=== PATIENT | male | born 1945 | race Caucasian/White ===

== ENCOUNTER → 2018-05-23 | Outpatient (CLI) | payer MEDICARE ==
[2018-05-23 14:40] LABS: HCT 43.9 % (39.0-53.0); HGB 14.8 gm/dL (13.0-17.5); MCH 32.5 pg (25.0-35.0); MCHC 33.6 g/dL (31.0-37.0); MCV 96.8 fL (80.0-100.0); Mean Platelet Volume 7.6; Platelet Count 137 k/uL (150-450); RBC 4.54 m/uL (4.30-5.90); RDW 14.4 % (11.5-15.5); WBC 3.4 k/uL (3.8-10.6)
[2018-05-23 14:52] LABS: INR 0.9 (<1.2); Partial Thromboplastin Time 23.3 sec (22.0-30.0); Potassium 3.7 mmol/L (3.5-5.1); Prothrombin Time 10.1 sec (9.0-12.0)
[2018-05-23 15:15] LABS: Appearance,Urine Clear (Clear); Bilirubin,Urine Negative (Negative); Blood,Urine Negative (Negative); Color,Urine Yellow; Glucose,Urine (UA) Negative (Negative); Ketones,Urine Negative (Negative); Leukocyte Esterase,Urine Negative (Negative); Nitrite,Urine Negative (Negative); PH, Urine 7.5 (5.0-8.0); Protein,Urine Negative (Negative); Specific Gravity,Urine 1.013 (1.001-1.035); Urobilinogen,Urine <2.0 mg/dL (<2.0)
== END | disposition home or self-care (01) ==
LOC: LABPAT 13:57
PROVIDERS: ATTEND Orthopaedic Surgery
DX: Z01.812 Encounter for preprocedural laboratory examination (principal); M16.11 Unilateral primary osteoarthritis, right hip
CPT/HCPCS: 80051; 81003; 82565; 84520; 85027; 85610; 85730; 87070

== ENCOUNTER 2018-05-29 11:24 | Inpatient (IN) | payer MEDICARE ==
[~2018-05-29 11:24] MED LIST: ACETAMINOPHEN TAB 500 MG TAB PO ONE; HYDROmorphone 0.5 MG/0.5 ML SYRINGE IVP PRN; LIDOCAINE 1% 20 ML VIAL (10MG/ML) FOR IV START INTRADERMA PRN; MELOXICAM 7.5 MG TAB PO ONE; ONDANSETRON 4 MG/2 ML VIAL IVP ONE; TRANEXAMIC ACID 1,000 MG in SODIUM CHLORIDE 0.9% 100 ML IVPB ONE; ceFAZolin IN SWFI 2 GM/20 ML SYRINGE IVP ONE
[2018-05-29] MEDS: LACTATED RINGERS 1,000 ML IV SCH (12:18)
[2018-05-29] MEDS ORDERED: DEXAMETHASONE SOD PHOS (MDV) 100 MG/10 ML VIAL IV ONE (12:19)
[2018-05-29] MEDS ORDERED: MIDAZOLAM 2 MG/2 ML VIAL IV ONE (13:01)
[2018-05-29] MEDS ORDERED: NALOXONE 0.4 MG/ML 1 ML VIAL IV PRN (13:12)
[2018-05-29] MEDS ORDERED: MAGNESIUM HYDROXIDE 2,400 MG/10 ML CUP PO PRN (13:12)
[2018-05-29] MEDS ORDERED: HYDROmorphone 0.5 MG/0.5 ML SYRINGE IVP PRN ×2 (13:12)
[2018-05-29] MEDS ORDERED: HYDROcodone/APAP 7.5-325MG 1 EACH TAB PO PRN (13:12)
[2018-05-29] MEDS ORDERED: hydrOXYzine PAMOATE 25 MG CAP PO PRN (13:12)
[2018-05-29] MEDS ORDERED: ONDANSETRON 4 MG/2 ML VIAL IVP PRN (13:12)
[2018-05-29] MEDS ORDERED: MIDAZOLAM 2 MG/2 ML VIAL ONE (13:14)
[2018-05-29] MEDS ORDERED: fentaNYL (PF) 50 MCG/ML 2 ML AMP ONE (13:14)
[2018-05-29] MEDS ORDERED: ePHEDrine SULFATE/0.9% NACL/PF 50 MG/5 ML SYRINGE IV ONE (13:14)
[2018-05-29] MEDS: ROPIVACAINE 246.25 MG, EPINEPHrine 0.5 MG, KETOROLAC 30 MG, cloNIDine HCL/PF 80 MCG, WA... MISCELLANE ONE ×10 (13:48→13:58)
[2018-05-29] MEDS ORDERED: ceFAZolin 3,000 MG in SODIUM CHLORIDE 0.9% IRRIGATIO 3,000 ML IRRIGATION ONE (13:49)
--- NOTE | 2018-05-29 14:58 | P.OP ---
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 Procedure(s) Performed: Conversion of a right hip hemiarthroplasty to total hip arthroplasty Implants: [employer] R3 3 hole hemispherical coated shell, 52 mm [employer] reflection 6.5 mm cancellus screw 20 mm 2 [employer] R3 XLPE 20 acetabular liner, 36 mm Maurice Biolox delta ceramic femoral head 36 mm, 12 x 14 taper The articulation is ceramic on polyethylene All components were press-fit Anesthesia: spinal Surgeon: Romeo Briscoe Country Director #1: Winnie Washington Estimated Blood Loss (ml): 100 Pathology: none sent Condition: stable Disposition: PACU Indications for Procedure: This is a 73-year-old gentleman that had a right hip hemiarthroplasty performed on July [id number] for subcapital hip fracture. Patient initially had son well, but is beginning to have more pain in the right hip with activity. X- rays demonstrate arthrosis of the acetabulum consistent with cartilage wear causing the pain. After discussing the surgical and nonsurgical treatment options with her at length, he wishes to proceed with a conversion hemiarthroplasty to a total hip arthroplasty. Informed consent was obtained. Operative Findings: The operative findings are consistent with significant arthrosis of the acetabulum. The femoral component was found to be well seated. Description of Procedure: Patient was seen and evaluated in the preoperative area, consent was reviewed, and the surgical site was marked with a skin marker. Patient was then brought to the operating room and given prophylactic antibiotics intravenously. 1 g of Tranexamic acid was also given. A spinal anesthetic was administered by the anesthesia department. The patient was then placed on the operative table and placed in the lateral decubitus position with the bony prominences well-padded. The hip area was then prepped and draped in usual sterile fashion. A universal timeout was then performed, which confirmed the patient's name, surgical site, ALLERGIES, and procedure being performed. Next the incision site was located in the lateral aspect of the hip, centered at the tip of the greater trochanter.. The skin and subcutaneous tissues were sharply incised, with the scar being excised.. Incision was carefully dissected down to the fascia. This fascia was then incised in line with the incision. The prior Ethibond sutures were then removed. Next, a Charnley retractor was then placed in the abductors were identified. The anterior one third of the abductors was released off the trochanter and one large sleeve. The anterior hip capsule was then exposed. The capsule was then opened. The proximal femur was then visualized. The hip was then gently dislocated. The unipolar head was then removed with an osteotome and a mallet. The femoral component was inspected and found to be stable. Attention was then directed to the acetabulum. The acetabulum was exposed and any remaining labrum was excised. The acetabulum was found have significant arthrosis and complete loss of articular cartilage. Sequential reaming of the acetabulum was performed to a bed of bleeding cancellus bone. When the appropriate size was reached, a trial was then placed. The trial was then removed. Then the final implant was impacted at 20 of anteversion and 40 of abduction, and fully seated in the acetabulum. 2 screws were then placed in the acetabulum. Next, the liner was then impacted, with a 20 elevated liner located in the anterior superior quadrant. Component locking was confirmed. Attention was then directed to the femur. A trial was then placed with appropriate head and neck, and the hip was gently reduced. The leg lengths were checked and found to be equal. Hip was then taken through full range of motion, was stable throughout. Next, the hip was gently dislocated, and the trials were removed. Final implants were then impacted and the hip was again reduced. The leg lengths were again examined and found to be equal. The hip was also taken through range of motion, and found to be stable. The hip was then copiously irrigated with antibiotic solution with pulsatile lavage. The hip was then irrigated with Irrisept solution. The soft tissues were then injected with a ropivacaine solution, which consisted of 246.25 mg of ropivacaine, 0.5 mg of epinephrine, 30 mg of Toradol, 80 g of clonidine, and 48.45 mL of sterile water, for a total of 100 mL of fluid injected. A second dose of 1 g of Tranexamic acid was given. The abductors were then repaired with #5 Ethibond suture with drill holes to the bone. The fascia was closed with #2 strata fix suture. The subcutaneous tissue was closed with 3-0 Vicryl. The subcuticular tissue was closed with 30 strata fix suture. The skin was then closed with Dermabond tape. A silver dressing was also applied. The patient was then transferred to the recovery room in stable condition. The Asst. FABY Mantilla was required due to the complexity of surgery, and the need for skilled surgical services asst for positioning, draping, exposure, retraction, and closure of the wound.and closure of the wound.
[2018-05-29] MEDS ORDERED: LACTATED RINGERS 1,000 ML IV ONE (15:12)
--- NOTE | 2018-05-29 15:43 | XR ---
EXAMINATION TYPE: XR Hip Limited RT DATE OF EXAM: 05/29/2018 COMPARISON: NONE HISTORY: Postop TECHNIQUE: One view submitted. FINDINGS: There is postsurgical change in near anatomic alignment. There is soft tissue edema and emphysema. V ascular calcifications are noted. Previous trauma to the pubic rami seen. Soft tissue ossifications n oted. Diffuse osteopenia. IMPRESSION: 1. Postoperative change. Appears in near-anatomic alignment.
[2018-05-29 16:33] VITALS: BMI 20.4
[2018-05-29] MEDS: SODIUM CHLORIDE 0.9% 1,000 ML IV SCH (17:09)
[2018-05-29] MEDS: HYDROcodone/APAP 7.5-325MG 1 EACH TAB PO PRN (18:02)
[2018-05-29] MEDS: NICOTINE 14MG/24HR PATCH TRANSDERM SCH (18:02)
[2018-05-29] MEDS: HYDROmorphone 0.5 MG/0.5 ML SYRINGE IVP PRN (21:14)
[2018-05-29] MEDS: SENNOSIDES-DOCUSATE SODIUM 1 EACH TAB PO SCH (21:53)
[2018-05-29] MEDS: ATORVASTATIN 80 MG TAB PO SCH (21:53)
[2018-05-29] MEDS: amLODIPine 10 MG TAB PO SCH (21:53)
[2018-05-29] MEDS: ASPIRIN 325 MG TAB PO SCH (21:53)
[2018-05-29] MEDS: SERTRALINE 100 MG TAB PO SCH (21:53)
[2018-05-29] MEDS: ZOLPIDEM 10 MG TAB PO SCH (21:53)
[2018-05-29] MEDS: ceFAZolin IN SWFI 2 GM/20 ML SYRINGE IVP SCH (21:53)
[2018-05-29] MEDS: MELATONIN 5 MG TABLET PO PRN (21:57)
[2018-05-30] MEDS: HYDROmorphone 0.5 MG/0.5 ML SYRINGE IVP PRN ×3 (00:41→13:48)
[2018-05-30] MEDS: SODIUM CHLORIDE 0.9% 1,000 ML IV SCH ×2 (04:24→20:39)
[2018-05-30] MEDS: ceFAZolin IN SWFI 2 GM/20 ML SYRINGE IVP SCH (04:38)
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
[2018-05-30] MEDS: LACTATED RINGERS 1,000 ML IV SCH (05:17)
[2018-05-30 06:31] LABS: Basophils % (A) 0 %; Eosinophils % (A) 1 %; HCT 29.8 % (39.0-53.0); Lymphocytes # (A) 0.7 k/uL (1.0-4.8); Lymphocytes % (A) 17 %; MCH 32.7 pg (25.0-35.0); MCHC 33.1 g/dL (31.0-37.0); MCV 98.8 fL (80.0-100.0); Mean Platelet Volume 8.2; Monocytes # (A) 0.4 k/uL (0-1.0); Monocytes % (A) 10 %; Neutrophils % (A) 71 %; Platelet Count 93 k/uL (150-450); RBC 3.02 m/uL (4.30-5.90); RDW 14.9 % (11.5-15.5); WBC 4.3 k/uL (3.8-10.6)
[2018-05-30 06:51] LABS: HGB 9.9 gm/dL (13.0-17.5)
[2018-05-30 07:08] LABS: Calcium 7.8 mg/dL (8.4-10.2); Potassium 3.7 mmol/L (3.5-5.1)
[2018-05-30 08:18] LABS: Poikilocytosis (M) Present
--- NOTE | 2018-05-30 08:44 | P.PN ---
Subjective Progress Note Date: 05/30/18 This is a 73-year-old male who is status post conversion of a right hip hemiarthroplasty to total hip arthroplasty. This is postoperative day #1 and patient is seen and evaluated at bedside with Dr. Romeo Briscoe. Patient states that his pain is well controlled. Patient denies any new complaints. Patient denies any fever/chills, numbness, weakness, tingling, abdominal pain, shortness of breath or chest pain. Objective - Vital Signs Vital signs: Vital Signs Temp 98.2 F 05/29/18 23:53 Pulse 56 L 05/29/18 23:53 Resp 16 05/29/18 23:53 BP 108/70 05/29/18 23:53 Pulse Ox 98 05/29/18 23:53 Intake & Output 05/29/18 05/30/18 05/30/18 18:59 06:59 18:59 Intake Total 1401 Output Total 100 750 Balance 1301 -750 Intake: IV 1401 Output: Urine 750 Estimated Blood Loss 100 Other: Voiding Method Urinal - Exam Vital signs are stable. Patient is in no acute distress and is alert and oriented 3. Abductor pillow is in place. Calf is soft and nontender to palpation. Dressing is clean, dry, and intact. Patient has full foot and ankle motion without pain or difficulty. Neurovascular status and circulatory status are intact. 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 COPD Hyperlipidemia Hypertension Osteoarthritis Eye disorder Chronic back pain (1) Pain with hip hemiarthroplasty Current Visit: Yes Status: Acute Code(s): T84.84XA - PAIN DUE TO INTERNAL ORTHOPEDIC PROSTH DEV/GRFT, INIT; Z96.649 - PRESENCE OF UNSPECIFIED ARTIFICIAL HIP JOINT SNOMED Code(s): 746208251 Plan: Continue routine postop care and pain control. Continue hip precautions with abductor pillow. Continue anticoagulation with aspirin. Weightbearing as tolerated with a walker. Leave dressing in place for 10 days. Appreciate input from medicine. Possible discharge home tomorrow.
[2018-05-30] MEDS: HYDROcodone/APAP 7.5-325MG 1 EACH TAB PO PRN (10:15)
[2018-05-30] MEDS: MELOXICAM 7.5 MG TAB PO SCH (10:16)
[2018-05-30] MEDS: ASPIRIN 325 MG TAB PO SCH ×2 (10:16→21:39)
[2018-05-30] MEDS: TRIAMTERENE-HCTZ 37.5-25MG 1 EACH TAB PO SCH (10:17)
[2018-05-30] MEDS: TAMSULOSIN 0.4 MG CAP.ER.24H PO SCH (10:17)
[2018-05-30] MEDS ORDERED: HYDROcodone/APAP 10-325MG 1 EACH TAB PO PRN (14:50)
[2018-05-30] MEDS: HYDROcodone/APAP 10-325MG 1 EACH TAB PO PRN ×2 (16:23→22:50)
[2018-05-30] MEDS: DIAZEPAM 5 MG TAB PO PRN ×2 (16:24→23:26)
[2018-05-30] MEDS: NICOTINE 14MG/24HR PATCH TRANSDERM SCH (18:02)
--- NOTE | 2018-05-30 18:22 | PN ---
PROGRESS NOTE DATE OF SERVICE: 05/30/2018 This 73-year-old gentleman underwent right total knee arthroplasty today. The patient underwent possibly conversion for right total arthroplasty. No chest pain. No palpitations. On exam, alert and oriented x3. Pulse is 57, blood pressure 101/69, respiration 18, temperature 97.9, pulse ox 96% on room air. HEENT: Conjunctivae normal. NECK: No jugular venous distention. CARDIOVASCULAR SYSTEM: S1, S2 muffled. RESPIRATORY SYSTEM: Breath sounds diminished at the bases. No rhonchi. No crackles. ABDOMEN: Soft. LEGS: Status post surgery. NERVOUS SYSTEM: No focal deficit. LABS: WBC 4.3, hemoglobin 9.9, platelets 93 and sodium is 134, creatinine 1.31. ASSESSMENT: 1. Status post right total hip joint arthroplasty for right hip fracture. 2. History of hypertension. 3. Hyperlipidemia. 4. History of nicotine dependence. 5. Anemia, as expected. 6. Thrombocytopenia. 7. Hyponatremia. 8. Increased creatinine with chronic kidney disease, stage III, baseline. 9. History of nicotine dependence. 10.History of degenerative joint disease. 11.History of back pain. 12.Depression. 13.Post-traumatic stress disorder. 14.History of recent labs showing increased creatinine, mild thrombocytopenia, which is stable. RECOMMENDATIONS AND DISCUSSION: I recommend to continue current medications, continue with the monitoring, symptomatic treatment. Otherwise, continue with DVT prophylaxis. Closely follow with Orthopedic Surgery. I recommend close followup in the outpatient setting. Further recommendations to follow. MMODL / RENATON: [id number] /
[2018-05-30] MEDS: SENNOSIDES-DOCUSATE SODIUM 1 EACH TAB PO SCH (21:39)
[2018-05-30] MEDS: amLODIPine 10 MG TAB PO SCH (21:39)
[2018-05-30] MEDS: ZOLPIDEM 10 MG TAB PO SCH (21:39)
[2018-05-30] MEDS: MELATONIN 5 MG TABLET PO PRN (21:39)
[2018-05-30] MEDS: SERTRALINE 100 MG TAB PO SCH (21:39)
[2018-05-30] MEDS: ATORVASTATIN 80 MG TAB PO SCH (21:39)
[2018-05-31] MEDS: HYDROcodone/APAP 10-325MG 1 EACH TAB PO PRN ×2 (05:07→11:40)
[2018-05-31] MEDS: LACTATED RINGERS 1,000 ML IV SCH (05:39)
[2018-05-31 07:30] VITALS: BP 120/73; PULSE 90; RESP 14; TEMP 98.8
[2018-05-31] MEDS: TRIAMTERENE-HCTZ 37.5-25MG 1 EACH TAB PO SCH (07:35)
[2018-05-31] MEDS: DIAZEPAM 5 MG TAB PO PRN (07:35)
[2018-05-31] MEDS: TAMSULOSIN 0.4 MG CAP.ER.24H PO SCH (07:35)
[2018-05-31] MEDS: ASPIRIN 325 MG TAB PO SCH (07:35)
[2018-05-31] MEDS: MELOXICAM 7.5 MG TAB PO SCH (07:35)
--- NOTE | 2018-05-31 08:43 | P.DS ---
Providers Date of admission: 05/29/18 11:24 Expected date of discharge: 05/31/18 Attending physician: Romeo Briscoe Consults: 05/29/18 13:12 Consult Physician Routine Consulting Provider: Jay Jay Hagan Consult Reason/Comments: medical management Do you want consulting provider notified?: Yes 05/29/18 16:15 Consult Physician Routine Consulting Provider: Amee Cordero Consult Reason/Comments: medical management Do you want consulting provider notified?: Already Contacted Primary care physician: Jay Jay Hagan - Discharge Diagnosis(es) (1) Pain with hip hemiarthroplasty Current Visit: Yes Status: Acute Hospital Course: This is a 73-year-old male who had a right hip hemiarthroplasty done on 2015 for a subcapital hip fracture. The patient presents for evaluation after the right hip started to become more painful. X-ray showed arthrosis of the acetabulum. After discussion and consideration patient elects to proceed with conversion of right hip hemiarthroplasty to right total hip arthroplasty. The patient is seen preoperatively by Dr. Briscoe and medically cleared for surgery by their primary care physician. Patient is [facility] on 05/29/2018 for conversion of right hip hemiarthroplasty to right total hip arthroplasty. The procedures performed without complication or sequelae. The patient is doing well postoperatively. Labs and vital signs are stable on day of discharge. On day of discharge patient's hip incision is healing well. There is minimal erythema. There is no drainage noted at this time. There is minimal soft tissue swelling to the hip and thigh. Patient has full foot and ankle motion without difficulty or pain. Calf is soft and nontender to palpation. Neurovascular status to the right lower extremity is intact. Patient is discharged home in good condition. Please see med rec for accurate list of home medications. Plan - Discharge Summary Discharge Rx Participant: No New Discharge Prescriptions: New Aspirin 325 mg PO BID #60 tab No Action Sertraline HCl [Zoloft] 100 mg PO HS Atorvastatin [Lipitor] 80 mg PO HS Tamsulosin [Flomax] 0.4 mg PO DAILY cap.er.24h Zolpidem Tartrate 10 mg PO HS Naproxen Sod/Diphenhydramine [Aleve Pm Caplet] 1 tab PO HS Triamterene/Hydrochlorothiazid [Triamterene-Hctz 37.5-25 mg Tb] 1 tab PO DAILY Aspirin 81 mg PO DAILY amLODIPine [Norvasc] 10 mg PO HS Melatonin 20 mg PO HS PRN PRN Reason: Insomnia HYDROcodone/APAP 10-325MG [Hastings 10-325] 1 tab PO Q4H PRN PRN Reason: Pain Discharge Medication List Sertraline HCl [Zoloft] 100 mg PO HS 12/27/13 [History] Atorvastatin [Lipitor] 80 mg PO HS 08/07/15 [History] Tamsulosin [Flomax] 0.4 mg PO DAILY cap.er.24h 09/11/15 [Rx] Zolpidem Tartrate 10 mg PO HS 09/25/15 [History] Aspirin 81 mg PO DAILY 05/22/18 [History] Naproxen Sod/Diphenhydramine [Aleve Pm Caplet] 1 tab PO HS 05/22/18 [History] Triamterene/Hydrochlorothiazid [Triamterene-Hctz 37.5-25 mg Tb] 1 tab PO DAILY 05/22/18 [History] HYDROcodone/APAP 10-325MG [Hastings 10-325] 1 tab PO Q4H PRN 05/29/18 [History] Melatonin 20 mg PO HS PRN 05/29/18 [History] amLODIPine [Norvasc] 10 mg PO HS 05/29/18 [History] Aspirin 325 mg PO BID #60 tab 05/31/18 [Rx] Follow up Appointment(s)/Referral(s): [facility], [NON-STAFF] - As Needed Romeo Briscoe DO [Doctor of Osteopathic Medicine] - 2 Weeks Activity/Diet/Wound Care/Special Instructions: Weightbearing as tolerated with walker. Leave dressing intact. Dressing may be removed by home care nurse or by patient in 10 days. May shower with dressing on. Continue use if abductor pillow for 6 weeks. Pain management per Dr. Hagan. Please follow-up with [facility] in 2 weeks and call with any questions or concerns, . Discharge Disposition: HOME WITH HOME HEALTH SERVICES
--- NOTE | 2018-05-31 21:03 | PN ---
PROGRESS NOTE DATE OF SERVICE: 05/31/2018 This 73-year-old gentleman who was admitted after right total knee arthroplasty is improving significantly. No chest pain. No palpitations. No fever. EXAM: Alert and oriented x3. Pulse is 90, blood pressure 120/73, respiration 14, temperature 98.8, pulse ox 97% on room air. HEENT: Conjunctivae normal. NECK: No jugular venous distention. CARDIOVASCULAR: S1, S2. RESPIRATORY: Breath sounds diminished in the bases. No rhonchi, no crackles. ABDOMEN: Soft. LEGS: No edema. NERVOUS SYSTEM: No focal deficits. LABS: WBC 4.2, hemoglobin 9.9, platelets 93. Sodium 134, creatinine 1.131. ASSESSMENT: 1. Status post right total hip joint arthroplasty for right hip fracture. 2. History of hypertension. 3. History of hyperlipidemia. 4. History of nicotine dependence. 5. History of anemia as expected. 6. Thrombocytopenia. 7. Hyponatremia. 8. Increased creatinine with possibly chronic kidney disease stage III baseline. 9. History of nicotine dependence. 10.History of degenerative joint disease. 11.History of back pain. 12.Depression. 13.Posttraumatic stress disorder. 14.History of recent labs showing increased creatinine, mild thrombocytopenia, which is stable. RECOMMENDATIONS AND DISCUSSION: I recommend to continue current management, monitoring and symptomatic treatment. Resume the home medications. Closely follow with primary physician with repeat labs. Otherwise, the rest of the recommendations per Orthopedic Surgery. MMODL / IJN: [id number] /
== END 2018-05-31 13:10 | disposition home health service (06) | DRG 467 ==
LOC: 2ORMAIN 11:24 → 4SSUR 16:05
PROVIDERS: ADMIT Orthopaedic Surgery; ATTEND Orthopaedic Surgery
PROC: 0SP90JZ Removal of Synthetic Substitute from Right Hip Joint, Open Approach (ICD-10-PCS; 2018-05-29)
PROC: 0SR904A Replacement of Right Hip Joint with Ceramic on Polyethylene Synthetic Substitute, Uncemented, Open Approach (ICD-10-PCS; principal; 2018-05-29 14:00)
DX: T84.090A Other mechanical complication of internal right hip prosthesis, initial encounter (principal); E87.1 Hypo-osmolality and hyponatremia; D69.6 Thrombocytopenia, unspecified; J44.9 Chronic obstructive pulmonary disease, unspecified; N18.3 Chronic kidney disease, stage 3 (moderate); D64.9 Anemia, unspecified; M16.11 Unilateral primary osteoarthritis, right hip; E78.5 Hyperlipidemia, unspecified; F32.9 Major depressive disorder, single episode, unspecified; F43.10 Post-traumatic stress disorder, unspecified; G89.29 Other chronic pain; H57.9 Unspecified disorder of eye and adnexa; I12.9 Hypertensive chronic kidney disease with stage 1 through stage 4 chronic kidney disease, or unspecified chronic kidney disease; M54.9 Dorsalgia, unspecified; F17.210 Nicotine dependence, cigarettes, uncomplicated; N40.0 Benign prostatic hyperplasia without lower urinary tract symptoms; H91.90 Unspecified hearing loss, unspecified ear; R26.81 Unsteadiness on feet; Z88.0 Allergy status to penicillin; Z79.82 Long term (current) use of aspirin; Z79.899 Other long term (current) drug therapy; Y79.2 Prosthetic and other implants, materials and accessory orthopedic devices associated with adverse incidents
CPT/HCPCS: 73501; 80048; 85025; 86850; 86900; 86901

== ENCOUNTER → 2019-02-18 | Outpatient (CLI) | payer MEDICARE ==
--- NOTE | 2019-02-18 19:37 | MR ---
EXAMINATION TYPE: MR cervical spine wo con DATE OF EXAM: 02/18/2019 COMPARISON: Prior cervical MRI 02/28/2014 HISTORY: Neck pain, left arm pain/weakness TECHNIQUE: Multiplanar, multisequence images of the cervical spine were acquired. C2-C3: There is some foraminal encroachment due to uncovertebral joint hypertrophy greater on the lef t than on the right, no significant spinal stenosis or evident disc herniation C3-C4: Retrolisthesis associated with posterior broad-based disc bulge is noted results in severe spi nal stenosis, there is bilateral foraminal encroachment due to uncovertebral joint hypertrophy, facet arthropathy. C4-C5: There is some motion present, suspect there may be some mild central stenosis. Uncovertebral j oint hypertrophy facet arthropathy results in bilateral foraminal encroachment. No definite disc tori iation. C5-C6: Posterior broad-based disc bulge, circumferential extension endplate disc complex causes anter ior mass effect on the thecal sac. Some foraminal encroachment is present left greater than right due to uncovertebral joint hypertrophy. C6-C7: Posterior broad-based disc bulge causes anterior mass effect on the thecal sac. No significant central stenosis. There is some right-sided foraminal encroachment due to uncovertebral joint hypert rophy. C7-T1: Posterior broad-based disc bulge causes mild anterior mass effect on the thecal sac. Sequentia l extension is noted, uncovertebral joint hypertrophy results in some foraminal encroachment which is symmetric. Cervical segments are intact. There is multilevel spondylosis. Endplate discogenic marrow signal maher ges are present. Alignment is essentially stable, minimal retrolisthesis grade 1 C3-4 and C5-6, anter olisthesis grade 1 C4-5 and C7-T1. Loss of disc height signal present at intervertebral levels as on prior. There is a spinal curvature. Some reversal the normal cervical lordosis again seen. Suspect so me increased signal within the cervical cord at the C3 level, likely some underlying gliosis or possi kanu myelomalacia, sagittal image #9 T2 data set. Craniovertebral junction relationships are within no rmal limits. IMPRESSION: Degenerative disc disease, multilevel foraminal encroachment, spinal stenosis is similar to prior exa m. Additional findings above.
== END | disposition home or self-care (01) ==
LOC: RADMRIMAIN 17:30
PROVIDERS: ATTEND Nurse Practitioner
DX: M48.02 Spinal stenosis, cervical region (principal); M50.31 Other cervical disc degeneration, high cervical region; M50.222 Other cervical disc displacement at C5-C6 level; M43.12 Spondylolisthesis, cervical region; M43.02 Spondylolysis, cervical region; M40.40 Postural lordosis, site unspecified; M43.8X2 Other specified deforming dorsopathies, cervical region
CPT/HCPCS: 72141

== ENCOUNTER 2019-09-09 13:01 | Emergency (ER) | payer MEDICARE ==
[2019-09-09 13:07] VITALS: RESP 20; TEMP 97.9
[2019-09-09] MEDS ORDERED: SODIUM CHLORIDE 0.9% 1,000 ML IV STA (13:27)
[2019-09-09] MEDS ORDERED: IPRATROPIUM-ALBUTEROL 3 ML NEB INHALATION STA (13:27)
[2019-09-09] MEDS ORDERED: ONDANSETRON 4 MG/2 ML VIAL IVP STA (13:28)
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
[2019-09-09 13:56] LABS: Basophils % (A) 0 %; Eosinophils # (A) 0.1 k/uL (0-0.7); Eosinophils % (A) 1 %; HGB 14.7 gm/dL (13.0-17.5); Lymphocytes % (A) 21 %; MCH 33.1 pg (25.0-35.0); MCHC 34.9 g/dL (31.0-37.0); MCV 94.9 fL (80.0-100.0); Mean Platelet Volume 9.1; Monocytes # (A) 0.4 k/uL (0-1.0); Monocytes % (A) 9 %; Neutrophils # (A) 3.2 k/uL (1.3-7.7); Neutrophils % (A) 67 %; Platelet Count 114 k/uL (150-450); RBC 4.43 m/uL (4.30-5.90); WBC 4.8 k/uL (3.8-10.6)
[2019-09-09] MEDS ORDERED: ALBUTEROL HFA INHALER INHALATION STA (14:01)
[2019-09-09 14:07] LABS: Prothrombin Time 10.3 sec (9.0-12.0)
[2019-09-09 14:10] LABS: Calcium 9.4 mg/dL (8.4-10.2); Potassium 3.3 mmol/L (3.5-5.1); Total Bilirubin 0.8 mg/dL (0.2-1.3); Total Protein 8.6 g/dL (6.3-8.2)
--- NOTE | 2019-09-09 14:42 | XR ---
EXAMINATION TYPE: XR chest 1V DATE OF EXAM: 09/09/2019 COMPARISON: 09/13/2015 HISTORY: 74 year-old male shortness of breath, difficulty breathing TECHNIQUE: Single frontal view of the chest is obtained. FINDINGS: Heart normal size. Pulmonary vasculature within normal limits. Some mild patchy densities in the ras pheral costophrenic angles. Hyperinflation with relative lucencies. No consolidation. IMPRESSION: COPD. Minimal patchy atelectasis or early infiltrate at the periphery of the lung bases. Otherwise, n o definite acute process.
[2019-09-09] MEDS ORDERED: methylPREDNISolone SOD SUCCI 125 MG/2 ML VIAL IV STA (15:51)
[2019-09-09] MEDS ORDERED: AZITHROMYCIN 500 MG TAB PO STA (15:51)
[2019-09-09] MEDS ORDERED: POTASSIUM CHLORIDE ER 20 MEQ TAB.ER PO STA (16:02)
--- NOTE | 2019-09-09 16:05 | ED ---
Medical Decision Making - Lab Data Result diagrams: 09/09/19 13:35 09/09/19 13:35 Lab Results 09/09/19 09/09/19 09/09/19 Range/Units 13:35 13:35 13:35 WBC 4.8 (3.8-10.6) k/uL RBC 4.43 (4.30-5.90) m/uL Hgb 14.7 (13.0-17.5) gm/dL Hct 42.0 (39.0-53.0) % MCV 94.9 (80.0-100.0) fL MCH 33.1 (25.0-35.0) pg MCHC 34.9 (31.0-37.0) g/dL RDW 14.0 (11.5-15.5) % Plt Count 114 L (150-450) k/uL Neutrophils % 67 % Lymphocytes % 21 % Monocytes % 9 % Eosinophils % 1 % Basophils % 0 % Neutrophils # 3.2 (1.3-7.7) k/uL Lymphocytes # 1.0 (1.0-4.8) k/uL Monocytes # 0.4 (0-1.0) k/uL Eosinophils # 0.1 (0-0.7) k/uL Basophils # 0.0 (0-0.2) k/uL PT 10.3 (9.0-12.0) sec INR 1.0 (<1.2) APTT 23.0 (22.0-30.0) sec Sodium 133 L (137-145) mmol/L Potassium 3.3 L (3.5-5.1) mmol/L Chloride 98 (98-107) mmol/L Carbon Dioxide 24 (22-30) mmol/L Anion Gap 11 mmol/L BUN 21 H (9-20) mg/dL Creatinine 1.16 (0.66-1.25) mg/dL Est GFR (CKD-EPI)AfAm 73 (>60 ml/min/1.73 sqM) Est GFR (CKD-EPI)NonAf 63 (>60 ml/min/1.73 sqM) Glucose 130 H (74-99) mg/dL Plasma Lactic Acid Mikey (0.7-2.0) mmol/L Calcium 9.4 (8.4-10.2) mg/dL Magnesium 2.0 (1.6-2.3) mg/dL Total Bilirubin 0.8 (0.2-1.3) mg/dL AST 39 (17-59) U/L ALT 16 (4-49) U/L Alkaline Phosphatase 74 (38-126) U/L Creatine Kinase 338 H (55-170) U/L Troponin I (0.000-0.034) ng/mL NT-Pro-B Natriuret Pep pg/mL Total Protein 8.6 H (6.3-8.2) g/dL Albumin 5.0 (3.5-5.0) g/dL 09/09/19 09/09/19 09/09/19 Range/Units 13:35 13:35 13:35 WBC (3.8-10.6) k/uL RBC (4.30-5.90) m/uL Hgb (13.0-17.5) gm/dL Hct (39.0-53.0) % MCV (80.0-100.0) fL MCH (25.0-35.0) pg MCHC (31.0-37.0) g/dL RDW (11.5-15.5) % Plt Count (150-450) k/uL Neutrophils % % Lymphocytes % % Monocytes % % Eosinophils % % Basophils % % Neutrophils # (1.3-7.7) k/uL Lymphocytes # (1.0-4.8) k/uL Monocytes # (0-1.0) k/uL Eosinophils # (0-0.7) k/uL Basophils # (0-0.2) k/uL PT (9.0-12.0) sec INR (<1.2) APTT (22.0-30.0) sec Sodium (137-145) mmol/L Potassium (3.5-5.1) mmol/L Chloride (98-107) mmol/L Carbon Dioxide (22-30) mmol/L Anion Gap mmol/L BUN (9-20) mg/dL Creatinine (0.66-1.25) mg/dL Est GFR (CKD-EPI)AfAm (>60 ml/min/1.73 sqM) Est GFR (CKD-EPI)NonAf (>60 ml/min/1.73 sqM) Glucose (74-99) mg/dL Plasma Lactic Acid Mikey 2.0 (0.7-2.0) mmol/L Calcium (8.4-10.2) mg/dL Magnesium (1.6-2.3) mg/dL Total Bilirubin (0.2-1.3) mg/dL AST (17-59) U/L ALT (4-49) U/L Alkaline Phosphatase (38-126) U/L Creatine Kinase (55-170) U/L Troponin I 0.031 (0.000-0.034) ng/mL NT-Pro-B Natriuret Pep 1170 pg/mL Total Protein (6.3-8.2) g/dL Albumin (3.5-5.0) g/dL Disposition Clinical Impression: Acute exacerbation of chronic obstructive pulmonary disease, Asthmatic bronchitis Disposition: HOME SELF-CARE Condition: Good Instructions (If sedation given, give patient instructions): Acute Bronchitis (ED), COPD (Chronic Obstructive Pulmonary Disease) (ED) Additional Instructions: Prescriptions sent to the preferred [facility] Prescriptions: Ipratropium/Albuterol Sulfate [Combivent Respimat Inhaler] 1 puff INHALATION QID #1 inhaler predniSONE [Deltasone] 20 mg PO BID #10 tab Potassium Chloride ER [K-Dur 20] 20 meq PO DAILY #7 tab Potassium Chloride ER [K-Dur 20] 20 meq PO DAILY #7 tab Azithromycin [Zithromax Z-pack] 250 mg PO DIRECTED #6 tab Is patient prescribed a controlled substance at d/c from ED?: No Referrals: Jay Jay Hagan MD [Primary Care Provider] - 1-2 days
[2019-09-09 16:45] VITALS: BP 150/92; PULSE 70
== END 2019-09-09 16:50 | disposition home or self-care (01) ==
LOC: EC 13:01
DX: J44.1 Chronic obstructive pulmonary disease with (acute) exacerbation (principal); F32.9 Major depressive disorder, single episode, unspecified; I10 Essential (primary) hypertension; E78.5 Hyperlipidemia, unspecified; F17.200 Nicotine dependence, unspecified, uncomplicated; Z79.82 Long term (current) use of aspirin; Z79.899 Other long term (current) drug therapy; Z79.1 Long term (current) use of non-steroidal anti-inflammatories (NSAID); Z88.0 Allergy status to penicillin
CPT/HCPCS: 36415; 94640; 93005; 83880; 80053; 82550; 83605; 83735; 84484; 85025; 85610; 85730; 87040; 71045; 99285; 96374; 96375; 96361 ×3; J2930; J2405

== ENCOUNTER 2020-06-25 16:52 | Inpatient (IN) | payer MEDICARE ==
[2020-06-25] MEDS ORDERED: SODIUM CHLORIDE 0.9% 1,000 ML IV STA (18:17)
[2020-06-25 19:08] LABS: Basophils % (A) 0 %; Eosinophils # (A) 0.1 k/uL (0-0.7); Eosinophils % (A) 1 %; HCT 45.8 % (39.0-53.0); HGB 15.8 gm/dL (13.0-17.5); Lymphocytes % (A) 9 %; MCH 33.3 pg (25.0-35.0); MCHC 34.5 g/dL (31.0-37.0); MCV 96.3 fL (80.0-100.0); Mean Platelet Volume 9.2; Monocytes # (A) 1.5 k/uL (0-1.0); Monocytes % (A) 14 %; Neutrophils # (A) 8.2 k/uL (1.3-7.7); Neutrophils % (A) 74 %; Platelet Count 119 k/uL (150-450); RBC 4.76 m/uL (4.30-5.90)
[2020-06-25 19:20] LABS: Albumin 5.4 g/dL (3.5-5.0); Calcium 10.8 mg/dL (8.4-10.2); Magnesium 1.6 mg/dL (1.6-2.3); Potassium 4.5 mmol/L (3.5-5.1); Total Protein 9.6 g/dL (6.3-8.2)
[2020-06-25 19:38] LABS: Partial Thromboplastin Time 21.6 sec (22.0-30.0); Prothrombin Time 10.9 sec (9.0-12.0)
--- NOTE | 2020-06-25 19:58 | XR ---
EXAMINATION TYPE: XR chest 2V DATE OF EXAM: 06/25/2020 COMPARISON: 09/09/2019 HISTORY: Chest pain TECHNIQUE: 2 views FINDINGS: There is mild pulmonary hyperinflation with flattening of the diaphragm. There is slight bl unting right costophrenic angle. There are no hilar masses. Heart size is normal. Bony thorax appears intact. IMPRESSION: COPD. There is pleural diaphragmatic scarring right lung base without change. No acute deneen ng disease. Normal heart.
[2020-06-25] MEDS ORDERED: HEPARIN SODIUM,PORCINE 5,000 UNIT/ML 1 ML VIAL IV PRN (20:03)
[2020-06-25] MEDS ORDERED: HEPARIN SODIUM,PORCINE 5,000 UNIT/ML 1 ML VIAL IV ONE (20:03)
[2020-06-25] MEDS ORDERED: ASPIRIN 81 MG PO STA (20:03)
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
--- NOTE | 2020-06-25 20:12 | CT ---
EXAMINATION TYPE: CT abdomen pelvis w con DATE OF EXAM: 06/25/2020 COMPARISON: 03/28/2017 HISTORY: Nausea and vomiting x4 days CT DLP: 662.1 mGycm Automated exposure control for dose reduction was used. CONTRAST: Performed with IV Contrast, patient injected with 100 mL of Isovue 300. Images obtained from the diaphragm to the floor the pelvis with IV contrast. Lung bases are clear. There is no pleural effusion. Heart size is normal. There is no pericardial eff usion. Liver spleen stomach pancreas gallbladder appear intact. The bile ducts are not dilated. There is no adrenal mass. Kidneys show satisfactory contrast opacification. There is no hydronephrosi s. Delayed images show normal renal excretion. There is 4.6 cm cyst anterior right kidney. There is 3 cm cortical cyst anterior upper pole left kidney. Abdominal aorta is atheromatous. Abdominal aorta measures up to 3 cm. 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 There is no disse ction. There is no retroperitoneal adenopathy. The bladder distends smoothly. There is metal artifact from right hip prosthesis. There is no free fl uid in the pelvis. Appendix is not seen. There is no mesenteric edema. There is no ascites or free air. There is no bowel obstruction. There i s laminectomy defect in the lumbar spine with posterior fusion surgery at L3-4. There is no lumbar co mpression fracture. There are spondylotic changes in the upper lumbar spine. IMPRESSION: Atherosclerotic vascular disease. 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 No acute abnormality within the abdomen pelvis. The right iliac artery aneurysm slightly i ncreased compared to old exam.
[2020-06-25] MEDS ORDERED: HEPARIN SOD,PORK IN 0.45% NACL 25,000 UNIT in 0.45% NACL 1 250ML.BAG IV SCH (20:15)
--- NOTE | 2020-06-25 21:46 | NM ---
EXAMINATION TYPE: NM pul vent and perfuse DATE OF EXAM: 06/25/2020 COMPARISON: NONE HISTORY: TECHNIQUE: Utilizing inhalation of 67.1 mCi Tc 99m DTPA aerosol and intravenous injection of 5.3 mCi of Tc 99m MAA, ventilation and perfusion images are acquired post injection in multiple projections. FINDINGS: There is symmetric decreased perfusion and ventilation in both upper lobes. There is no ventilation/p erfusion mismatch. There is fairly normal ventilation and perfusion of the lung bases.. IMPRESSION: There is evidence of bilateral airway disease in the upper lobes. There is low probability of pulmona ry embolism.
--- NOTE | 2020-06-25 22:49 | US ---
EXAMINATION TYPE: US abdomen limited DATE OF EXAM: 06/25/2020 COMPARISON: CT, US CLINICAL HISTORY: RUQ pain. RUQ pain x 3 days. EXAM MEASUREMENTS: Liver Length: 14.4 cm Gallbladder Wall: 0.21 cm CBD: 0.78 cm Right Kidney: 8.4 x 5.2 x 4.0 cm Limited due to gas. Pancreas: Obscured by gas. Liver: No abnormalities seen at this time. Gallbladder: Folds seen. Mobile hyperechoic foci seen within the gallbladder. Measures 5.82 cm in le ngth and 3.64 cm in width. Evidence for sonographic Bustillos's sign: No CBD: Appears dilated. Right Kidney: Anechoic area seen inferomedially: 4.2 x 4.2 x 3.9 cm. IMPRESSION: There are multiple gallstones. Intrahepatic bile ducts do not appear dilated. There is prominent comm on bile duct consistent with some mild gallbladder dysfunction. No discrete liver mass. Right renal c ortical cysts noted.
[2020-06-25] MEDS ORDERED: NITROGLYCERIN SL TABS 0.4 MG TAB SUBLINGUAL PRN (22:50)
[2020-06-25] MEDS ORDERED: metroNIDAZOLE-NS PMX 500 MG in SALINE 1 100ML.BAG IVPB STA (22:55)
[2020-06-26] MEDS ORDERED: NICOTINE 14MG/24HR PATCH TRANSDERM STA (00:19)
[2020-06-26 03:09] LABS: Cholesterol 128 mg/dL (<200); HDL Cholesterol 35 mg/dL (40-60); LDL Cholesterol,Calculated 77 mg/dL (0-99); Triglycerides 79 mg/dL (<150)
[2020-06-26 03:11] LABS: Basophils % (A) 0 %; Eosinophils % (A) 0 %; HCT 39.3 % (39.0-53.0); HGB 13.4 gm/dL (13.0-17.5); Lymphocytes # (A) 1.2 k/uL (1.0-4.8); Lymphocytes % (A) 13 %; MCH 33.6 pg (25.0-35.0); MCHC 34.1 g/dL (31.0-37.0); MCV 98.7 fL (80.0-100.0); Mean Platelet Volume 9.4; Monocytes # (A) 1.5 k/uL (0-1.0); Monocytes % (A) 15 %; Neutrophils # (A) 6.6 k/uL (1.3-7.7); Neutrophils % (A) 69 %; Platelet Count 110 k/uL (150-450); RBC 3.99 m/uL (4.30-5.90); RDW 14.3 % (11.5-15.5); WBC 9.6 k/uL (3.8-10.6)
[2020-06-26] MEDS ORDERED: ZOLPIDEM 5 MG TAB PO PRN (03:28)
[2020-06-26] MEDS: HYDROcodone/APAP 10-325MG 1 EACH TAB PO PRN ×2 (03:42→10:34)
[2020-06-26] MEDS ORDERED: ASPIRIN 325 MG TAB PO SCH (09:00)
[2020-06-26 09:33] LABS: Basophils % (A) 0 %; Eosinophils % (A) 0 %; HCT 35.4 % (39.0-53.0); HGB 11.7 gm/dL (13.0-17.5); Lymphocytes # (A) 1.8 k/uL (1.0-4.8); Lymphocytes % (A) 13 %; MCH 33.6 pg (25.0-35.0); MCV 101.8 fL (80.0-100.0); Macrocytosis Slight; Monocytes # (A) 1.9 k/uL (0-1.0); Monocytes % (A) 14 %; Neutrophils # (A) 9.6 k/uL (1.3-7.7); Neutrophils % (A) 70 %; Platelet Count 141 k/uL (150-450); RBC 3.48 m/uL (4.30-5.90); RDW 14.5 % (11.5-15.5); WBC 13.7 k/uL (3.8-10.6)
[2020-06-26 09:47] LABS: Albumin 4.3 g/dL (3.5-5.0); Potassium 4.1 mmol/L (3.5-5.1); Total Protein 7.2 g/dL (6.3-8.2)
[2020-06-26 09:48] LABS: Calcium 9.1 mg/dL (8.4-10.2); Total Bilirubin 0.8 mg/dL (0.2-1.3)
[2020-06-26] MEDS: METOPROLOL TARTRATE 50 MG TAB PO SCH (10:26)
[2020-06-26] MEDS: SODIUM CHLORIDE 0.9% 1,000 ML IV SCH ×2 (10:35→21:26)
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
--- NOTE | 2020-06-26 12:36 | CONS ---
CONSULTATION Ariel Pablo is a 75-year-old elderly gentleman who has most of his health care in the [place] area, has a primary care physician in the [place] area, came into the hospital with increasing complaints of shortness of breath, nausea, vomiting, and abdominal pain. After he was here, he also complained of some right upper quadrant pain and he usually smokes 4 packs a day but has cut down to one pack and he says he believes he is dehydrated, has not been eating much. While he was here he also had a troponin level checked and the troponin pattern suggests a non-ST elevation MN. He then went on to have a bowel movement which revealed black-colored stools suggestive of upper GI bleeding. His repeat hemoglobin is down almost more than 2 grams. He is quite emaciated, malnourished and does not drink alcohol but smokes heavily. He used to smoke 4 packs a day, for the last 2 months he has been down to one pack daily. Denies any chest discomfort at the time of my evaluation, but complains of epigastric discomfort. PAST MEDICAL HISTORY: 1. Smoking and COPD. 2. Hypertension. 3. Hyperlipidemia. 4. Benign prostatic hypertrophy. 5. No evidence of prior MN or CVA. He has had a previous closed head injury, details are unclear. MEDICATIONS: Medications at home include Flomax, amlodipine, albuterol inhaler, [place] for pain, melatonin, amlodipine, and albuterol inhaler. ALLERGIES: PENICILLIN. REVIEW OF SYSTEMS: Remarkable for fatigue, shortness of breath, palpitations. No chest discomfort, nausea, vomiting, and poor appetite. He is status post some inguinal hernia surgery and also a knee arthroscopy. PHYSICAL EXAMINATION: On examination, the blood pressure is 130/70, pulse rate is about 100 per minute, tachycardic. HEENT: Unremarkable. Fundus was not examined by me. Neck is supple. There is no JVD. No carotid bruit. Heart exam reveals S1, S2. There is a short systolic murmur at the base. Heart sounds are very poorly heard, slightly tachycardic. Lungs reveal diminished air entry. Abdomen is soft. There is mild epigastric tenderness. Lower extremities reveal diminished pulses. CENTRAL NERVOUS SYSTEM: No focal deficits. IMPRESSION: 1. Acute upper gastrointestinal bleeding. 2. Acute [id number] myocardial infarction. 3. Smoking and chronic obstructive pulmonary disease. 4. Weight loss and emaciation, rule out any malignancy. 5. History of hypertension. 6. Hyperlipidemia. RECOMMENDATIONS: I am recommending that we discontinue heparin and aspirin and place him only on subcu heparin and hydrate him and await further input from Dr. Rendon for possible endoscopy. I am concerned that this gentleman must have bled at least within the last 24 hours since he has black stools. We will repeat another hemoglobin in a few hours and consider transfusion if there is a significant drop in hemoglobin. I am awaiting further input from Dr. Rendon and possible endoscopy. I will not do any cardiac cath or intervention from a cardiac standpoint given the circumstances of active bleeding and drop in hemoglobin. Prognosis remains poor and I explained this to the patient in great detail. Thank you very much for the consult. GERONIMO / JAY: [id number] /
[2020-06-26 12:57] LABS: MCH 33.3 pg (25.0-35.0); MCHC 33.4 g/dL (31.0-37.0); MCV 99.9 fL (80.0-100.0); Mean Platelet Volume 9.6; Platelet Count 116 k/uL (150-450); RBC 3.31 m/uL (4.30-5.90); RDW 14.3 % (11.5-15.5)
[2020-06-26] MEDS ORDERED: LEVOFLOXACIN 500MG-D5W PMX 500 MG in DEXTROSE/WATER 1 100ML.BAG IVPB SCH (13:00)
[2020-06-26] MEDS: PANTOPRAZOLE 40 MG/10 ML VIAL IVP SCH ×2 (13:12→21:26)
[2020-06-26] MEDS: HYDROcodone/APAP 10-325MG 1 EACH TAB PO SCH ×3 (13:12→21:23)
--- NOTE | 2020-06-26 13:19 | ECHOF ---
Referral Reason:BNP/troponin elevation, dyspnea MEASUREMENTS -------- HEIGHT: 180.3 cm WEIGHT: 63.5 kg BP: 100/89 RVIDd: 3.6 cm (< 3.3) IVSd: 1.5 cm (0.6 - 1.1) LVIDd: 3.8 cm (3.9 - 5.3) LVPWd: 1.3 cm (0.6 - 1.1) IVSs: 1.9 cm LVIDs: 2.9 cm LVPWs: 1.8 cm LA Diam: 3.5 cm (2.7 - 3.8) Ao Diam: 3.2 cm (2.0 - 3.7) AV Cusp: 0.9 cm (1.5 - 2.6) MV EXCURSION: 13.883 mm (> 18.000) MV EF SLOPE: 29 mm/s (70 - 150) EPSS: 1.0 cm MV E Osmar: 1.12 m/s MV DecT: 57 ms MV A Osmar: 0.57 m/s MV E/A Ratio: 1.96 AV maxP.48 mmHg AV meanP.21 mmHg AR PHT: 580 ms RAP: 5.00 mmHg RVSP: 42.41 mmHg FINDINGS -------- Resting tachycardia (HR>100bpm). This was a technically adequate study. The left ventricular size is normal. There is moderate concentric left ventricular hypertrophy. O verall left ventricular systolic function is mildly impaired with, an EF between 45 - 50 %. Global hypokinesis The right ventricle is mildly enlarged. The left atrium is normal in size. The right atrium was not well visualized. Interatrial and interventricular septum intact. There is moderate aortic valve sclerosis. There is mild aortic regurgitation. There is mild aorti c stenosis present. Peak/mean gradient across the Aortic Valve is 32.48mmHg / 16.21mmHg. The mitral valve leaflets are mildly thickened. Mild mitral annular calcification present. Mild tricuspid regurgitation present. There is mild pulmonary hypertension. The right ventricular systolic pressure, as measured by Doppler, is 42.41mmHg. There is no pulmonic regurgitation present. The aortic root size is normal. Normal inferior vena cava with normal inspiratory collapse consistent with estimated right atrial pre ssure of 5 mmHg. There is no pericardial effusion. CONCLUSIONS -------- 1. Resting tachycardia (HR>100bpm). 2. This was a technically adequate study. 3. The left ventricular size is normal. 4. There is moderate concentric left ventricular hypertrophy. 5. Overall left ventricular systolic function is mildly impaired with, an EF between 45 - 50 %. 6. Global hypokinesis 7. The right ventricle is mildly enlarged. 8. There is moderate aortic valve sclerosis. 9. There is mild aortic regurgitation. 10. There is mild aortic stenosis present. 11. Peak/mean gradient across the Aortic Valve is 32.48mmHg / 16.21mmHg. 12. The mitral valve leaflets are mildly thickened. 13. Mild mitral annular calcification present. 14. Mild tricuspid regurgitation present. 15. There is mild pulmonary hypertension. 16. The right ventricular systolic pressure, as measured by Doppler, is 42.41mmHg. 17. There is no pericardial effusion. PRECISION MACHINING INSTRUCTOR: Janett Alves RDCS
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
[2020-06-26] MEDS ORDERED: ePHEDrine SULFATE/0.9% NACL/PF 50 MG/5 ML SYRINGE IV ONE (15:41)
[2020-06-26] MEDS ORDERED: LIDOCAINE 1% INJ 10MG/ML (20 ML MDV) ONE (15:41)
[2020-06-26] MEDS ORDERED: PROPOFOL 10 MG/ML 20 ML VIAL IV ONE (15:41)
[2020-06-26] MEDS ORDERED: IV FLUID CONTINUATION 1,000 ML IV ONE ×2 (15:42)
--- NOTE | 2020-06-26 16:21 | P.PCN ---
Date of Procedure: 06/26/20 Procedure(s) Performed: Preoperative Dx: Upper GI bleed, epigastric pain Postoperative Dx: Duodenitis with small AVM, gastritis, hiatal hernia, Schatzki's ring Procedure: EGD with cauterization duodenal AVM Anesthesia: Sedation Endoscopist: Dr. Rendon Specimens: None Endoscopic Procedure: The patient was on the endoscopy table in the left decubitus position. The Olympus gastroscope was inserted into the oropharynx and passed under direct visualization to the region of the third portion of the duodenum. From that point the scope was slowly withdrawn inspecting all surfaces carefully. There was evidence of mild duodenitis. There were a few small areas of subtle but spontaneous bleeding involving some of the duodenitis that appeared to be possibly small AVMs. There was a orifice seen between the first and second portion of the duodenum that was 2 mm and sized and appeared to represent a possible accessory duct orifice. No discrete ulcers were seen. Using the gold probe these 2 areas of AVMs were cauterized. No further bleeding was seen there. There was bile within the duodenum for the most part. The pylorus was widely patent. The stomach was inspected including retroflexion. The patient had evidence of old blood within the stomach although there was mixing of bile that was present in the stomach prior to our initial insertion. The stomach was irrigated. I was not able to visualize any active bleeding or ulcerations. Only mild gastritis was seen. On retroflexion a small sliding hiatal hernia was seen. At the GE junction itself there was a subtle Schatzki's ring without significant inflammatory changes. The esophagus in its entirety otherwise appeared normal. The patient was then taken to the recovery room in stable condition per anesthesia guidelines. Recommendations: Continue antiacid therapy. Add Carafate. Hold anticoagulation for this evening. Resume clear liquid diet. Continue antibiotics for possible cholecystitis. Patient does have complaints of right upper quadrant pain. Negative Bustillos's on ultrasound. If acute MS felt to be present would recommend conservative approach to the patient's suspected chronic cholecystitis. Interval cholecystectomy down the road may be considered. We'll follow closely with you. I did page Dr. Greenberg to discuss further.
[2020-06-26] MEDS: SUCRALFATE 1 GM TAB PO SCH (16:55)
[2020-06-26] MEDS: metroNIDAZOLE-NS PMX 500 MG in SALINE 1 100ML.BAG IVPB SCH ×2 (16:56→23:41)
[2020-06-26] MEDS ORDERED: HEPARIN SODIUM,PORCINE 5,000 UNIT/ML 1 ML VIAL SQ SCH (21:00)
[2020-06-26] MEDS ORDERED: ATORVASTATIN 80 MG TAB PO SCH (21:00)
[2020-06-26] MEDS: ZOLPIDEM 10 MG TAB PO PRN (21:22)
[2020-06-26] MEDS: TAMSULOSIN 0.4 MG CAP.ER.24H PO SCH (21:24)
[2020-06-26] MEDS: SERTRALINE 100 MG TAB PO SCH (21:24)
[2020-06-26] MEDS: MELATONIN 5 MG TABLET PO SCH (21:24)
[2020-06-26] MEDS: NICOTINE 14MG/24HR PATCH TRANSDERM SCH (21:25)
[2020-06-26] MEDS: ATORVASTATIN 80 MG TAB PO SCH (21:25)
[2020-06-27] MEDS: SUCRALFATE 1 GM TAB PO SCH ×2 (06:39→16:10)
[2020-06-27] MEDS: ALBUTEROL NEBULIZED 2.5 MG/3 ML INHALATION PRN ×4 (07:31→19:36)
[2020-06-27 10:02] LABS: Albumin 3.2 g/dL (3.5-5.0); Calcium 8.2 mg/dL (8.4-10.2); Potassium 3.3 mmol/L (3.5-5.1); Total Bilirubin 0.4 mg/dL (0.2-1.3); Total Protein 5.9 g/dL (6.3-8.2)
[2020-06-27 10:10] LABS: Basophils % (A) 0 %; Eosinophils % (A) 0 %; HCT 25.2 % (39.0-53.0); Lymphocytes # (A) 0.9 k/uL (1.0-4.8); Lymphocytes % (A) 20 %; MCH 33.4 pg (25.0-35.0); MCV 98.3 fL (80.0-100.0); Mean Platelet Volume 10.3; Monocytes # (A) 0.4 k/uL (0-1.0); Monocytes % (A) 10 %; Neutrophils # (A) 2.9 k/uL (1.3-7.7); Neutrophils % (A) 67 %; RBC 2.57 m/uL (4.30-5.90); RDW 14.4 % (11.5-15.5); WBC 4.3 k/uL (3.8-10.6)
[2020-06-27 10:12] LABS: HGB 8.6 gm/dL (13.0-17.5)
[2020-06-27 10:24] LABS: Platelet Count 75 k/uL (150-450)
[2020-06-27] MEDS: METOPROLOL TARTRATE 50 MG TAB PO SCH (10:26)
[2020-06-27] MEDS: PANTOPRAZOLE 40 MG/10 ML VIAL IVP SCH ×2 (10:26→21:54)
--- NOTE | 2020-06-27 10:26 | P.PN ---
Subjective Progress Note Date: 06/27/20 Principal diagnosis: Upper GI bleed, chronic cholecystitis Patient did well overnight. Complaining of back pain. Denies abdominal pain at this time. Mild tachycardia. Lactic acid is normalized. Hemoglobin did drop from 11 yesterday to 8.6. No active bleeding. No longer on anticoagulation. Objective - Vital Signs Vital signs: Vital Signs Temp 99.0 F 06/27/20 00:00 Pulse 72 06/27/20 07:45 Resp 18 06/27/20 04:00 BP 119/59 06/27/20 04:00 Pulse Ox 100 06/27/20 07:31 Intake & Output 06/26/20 06/27/20 06/27/20 18:59 06:59 18:59 Intake Total 500 80 480 Balance 500 80 480 Weight 58 kg 56.4 kg Intake: IV 500 Oral 80 480 Other: # Bowel Movements 1 - Exam Abdomen: Soft, minimal right upper quadrant tenderness, nondistended - Labs CBC & Chem 7: 06/27/20 08:43 06/27/20 08:43 Labs: Abnormal Lab Results - Last 24 Hours (Table) 06/26/20 06/26/20 06/27/20 Range/Units 12:22 15:06 08:43 WBC 11.0 H (3.8-10.6) k/uL RBC 3.31 L (4.30-5.90) m/uL Hgb 11.0 L (13.0-17.5) gm/dL Hct 33.0 L (39.0-53.0) % Plt Count 116 L (150-450) k/uL Potassium 3.3 L (3.5-5.1) mmol/L Chloride 112 H (98-107) mmol/L Carbon Dioxide 21 L (22-30) mmol/L BUN 38 H (9-20) mg/dL Plasma Lactic Acid Mikey 2.2 H* (0.7-2.0) mmol/L Calcium 8.2 L (8.4-10.2) mg/dL AST 62 H (17-59) U/L Total Protein 5.9 L (6.3-8.2) g/dL Albumin 3.2 L (3.5-5.0) g/dL 06/27/20 Range/Units 08:43 WBC (3.8-10.6) k/uL RBC 2.57 L (4.30-5.90) m/uL Hgb 8.6 L D (13.0-17.5) gm/dL Hct 25.2 L (39.0-53.0) % Plt Count (150-450) k/uL Potassium (3.5-5.1) mmol/L Chloride (98-107) mmol/L Carbon Dioxide (22-30) mmol/L BUN (9-20) mg/dL Plasma Lactic Acid Mikey (0.7-2.0) mmol/L Calcium (8.4-10.2) mg/dL AST (17-59) U/L Total Protein (6.3-8.2) g/dL Albumin (3.5-5.0) g/dL Assessment and Plan (1) Chronic cholecystitis Narrative/Plan: 75-year-old male with admission for acute IL concurrent with suspected chronic cholecystitis. Patient was given anticoagulation in the ER and developed acute upper GI bleed. Upper endoscopy showed blood within the stomach and a few small AVMs that were cauterized. No active bleeding. Spoke with cardiology. Medical management for the patient's acute IL. Nonsurgical management for now of the patient's chronic cholecystitis. Will advance diet. Will follow with you. Current Visit: Yes Status: Acute Code(s): K81.1 - CHRONIC CHOLECYSTITIS SNOMED Code(s): 46688740
[2020-06-27] MEDS: HYDROcodone/APAP 10-325MG 1 EACH TAB PO SCH ×4 (10:27→21:53)
[2020-06-27] MEDS: metroNIDAZOLE-NS PMX 500 MG in SALINE 1 100ML.BAG IVPB SCH ×2 (10:27→16:10)
[2020-06-27] MEDS: NICOTINE 14MG/24HR PATCH TRANSDERM SCH (10:27)
--- NOTE | 2020-06-27 15:04 | PN ---
PROGRESS NOTE Mr. Taylor is a gentleman who came in yesterday with an active GI bleed, significant drop in hemoglobin and also had a non-ST elevation OR type picture. He has no chest pain. He is comfortable and abdominal pain has resolved. Endoscopy revealed a duodenal AVM that was cauterized. He is hemodynamically stable, but hemoglobin is down. We will watch this closely. From a cardiac standpoint I am recommending beta ramesh therapy. No antiplatelet agents at this time. We will treat him medically with conservative management, but if he has any breakthrough angina, we will consider cardiac cath. Otherwise, upon discharge we will consider intervention. Advised to refrain from smoking altogether. Same medical regimen. Vitals are stable. No JVD. S1- S2 heard normally. Short systolic murmur is audible. Lungs reveal improved air entry. Abdomen is soft. The tenderness has resolved. The rest of physical exam unchanged. Continue medical therapy. Will hopefully discharge him if his hemoglobin remains stable. We will check another hemoglobin tomorrow. MMODL / IJN: [id number] /
[2020-06-27] MEDS: HYDROcodone/APAP 10-325MG 1 EACH TAB PO PRN (16:09)
--- NOTE | 2020-06-27 17:48 | P.PN ---
Subjective Patient is 75-year-old male came in with compensative nausea vomiting abdominal pain and diarrhea going on for about 4-5 days patient is a CT of the abdomen which showed cholelithiasis. Patient the is also found to have elevated troponins no symptoms and chest pain. Patient was also company of shortness of breath denied any orthopnea or paroxysmal nocturnal dyspnea. Patient is found to have elevated troponins first one being 1.6 second one 1.3 and third one being 1.0. Patient was started on IV heparin after that patient started having dark stools IV heparin was discontinued patient was started on Protonix patient does use of nonsteroidal anti-emetics of the night. Patient does have history of COPD does have emphysema on the x-ray doesn't use any oxygen presently on 4 L oxygen not wheezing can use to smoke about one pack of cigarettes per day. Patient was started on ceftriaxone and metronidazole by general surgery which I believe is for gallbladder pathology. Patient also had an ultrasound of the right upper quadrant which showed prominent common bile duct mild, bladder dysfunction with dilation of intrahepatic biliary duct. 06/27/2020 Patient overall looks much better today no wheezing today. Unsure whether cardiology is planning on intervention during this hospitalization. Patient's serum creatinine improved with IV fluids which are being continued although patient is bit hyperchloremic also switch it to lactated Ringer's. Patient had lactic acidosis which improved. Patient is also being treated for a cold pos sible cholecystitis with Rocephin and metronidazole. 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 Patient was diagnosed with a chronic cholecystitis by general surgery. Constitutional: Denied any fatigue denied any fever. Cardio vascular: denied any chest pain, palpitations Gastrointestinal denied any nausea vomiting Pulmonary: Denied any shortness of breath cough Neurologic denied any new focal deficits All inpatient medications were reviewed and appropriate changes in these medications as dictated in the interval history and assessment and plan. Objective - Vital Signs Vital signs: Vital Signs Temp 98.9 F 06/27/20 16:00 Pulse 71 06/27/20 16:00 Resp 18 06/27/20 16:00 BP 164/74 06/27/20 16:00 Pulse Ox 100 06/27/20 16:00 Intake & Output 06/26/20 06/27/20 06/27/20 18:59 06:59 18:59 Intake Total 500 80 840 Balance 500 80 840 Weight 58 kg 56.4 kg 56.4 kg Intake: IV 500 Oral 80 840 Other: # Voids 1 # Bowel Movements 1 2 - Exam PHYSICAL EXAMINATION: GENERAL: The patient is alert and oriented x3, not in any acute distress. Well developed, well nourished. HEENT: Pupils are round and equally reacting to light. EOMI. No scleral icterus. No conjunctival pallor. Normocephalic, atraumatic. No pharyngeal erythema. No thyromegaly. CARDIOVASCULAR: S1 and S2 present. No murmurs, rubs, or gallops. PULMONARY: Chest is clear to auscultation, no wheezing or crackles. ABDOMEN: Soft, nontender, nondistended, normoactive bowel sounds. No palpable organomegaly. MUSCULOSKELETAL: No joint swelling or deformity. EXTREMITIES: No cyanosis, clubbing, or pedal edema. NEUROLOGICAL: Gross neurological examination did not reveal any focal deficits. SKIN: No rashes. - Labs CBC & Chem 7: 06/27/20 08:43 06/27/20 08:43 Labs: Abnormal Lab Results - Last 24 Hours (Table) 06/27/20 06/27/20 Range/Units 08:43 08:43 RBC 2.57 L (4.30-5.90) m/uL Hgb 8.6 L D (13.0-17.5) gm/dL Hct 25.2 L (39.0-53.0) % Plt Count 75 L (150-450) k/uL Lymphocytes # 0.9 L (1.0-4.8) k/uL Potassium 3.3 L (3.5-5.1) mmol/L Chloride 112 H (98-107) mmol/L Carbon Dioxide 21 L (22-30) mmol/L BUN 38 H (9-20) mg/dL Calcium 8.2 L (8.4-10.2) mg/dL AST 62 H (17-59) U/L Total Protein 5.9 L (6.3-8.2) g/dL Albumin 3.2 L (3.5-5.0) g/dL Assessment and Plan Plan: -Possible acute non-ST elevation myocardial infarction: Patient was on IV heparin was discontinued because of GI bleed. Cardiology evaluated the patient no further intervention is being planned because of his acute GI bleed. 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 Prerenal azotemia may be related to sepsis to intravascular depletion, patient will be continued on IV fluids -Hyperlipidemia -Hypertension No pharmacologic DVT prophylaxis due to GI bleed
[2020-06-27] MEDS: LACTATED RINGERS 1,000 ML IV SCH (18:18)
[2020-06-27] MEDS: SODIUM CHLORIDE 0.9% 1,000 ML IV SCH ×2 (20:06→20:07)
[2020-06-27] MEDS: MELATONIN 5 MG TABLET PO SCH (21:53)
[2020-06-27] MEDS: SERTRALINE 100 MG TAB PO SCH (21:54)
[2020-06-27] MEDS: TAMSULOSIN 0.4 MG CAP.ER.24H PO SCH (21:54)
[2020-06-27] MEDS: ATORVASTATIN 80 MG TAB PO SCH (21:54)
[2020-06-27] MEDS: ZOLPIDEM 10 MG TAB PO PRN (22:44)
[2020-06-28] MEDS: metroNIDAZOLE-NS PMX 500 MG in SALINE 1 100ML.BAG IVPB SCH ×4 (01:24→23:15)
[2020-06-28] MEDS: HYDROcodone/APAP 10-325MG 1 EACH TAB PO PRN (05:28)
[2020-06-28] MEDS: SUCRALFATE 1 GM TAB PO SCH ×2 (06:39→17:24)
[2020-06-28] MEDS: LACTATED RINGERS 1,000 ML IV SCH ×2 (06:40→22:08)
[2020-06-28 07:57] LABS: HCT 23.5 % (39.0-53.0); MCH 33.3 pg (25.0-35.0); MCHC 34.1 g/dL (31.0-37.0); MCV 97.7 fL (80.0-100.0); Mean Platelet Volume 10.5; RDW 14.8 % (11.5-15.5); WBC 3.4 k/uL (3.8-10.6)
[2020-06-28 07:58] LABS: Platelet Count 66 k/uL (150-450)
[2020-06-28 08:15] LABS: African American GFR (CKD) >90 (>60 ml/min/1.73 sqM); Anion Gap 2 mmol/L; Blood Urea Nitrogen 18 mg/dL (9-20); Carbon Dioxide 25 mmol/L (22-30); Chloride 111 mmol/L (98-107); Glucose 102 mg/dL (74-99); Non-African American GFR(CKD) 82 (>60 ml/min/1.73 sqM); Sodium 138 mmol/L (137-145)
--- NOTE | 2020-06-28 08:35 | P.PN ---
Subjective Patient is 75-year-old male came in with compensative nausea vomiting abdominal pain and diarrhea going on for about 4-5 days patient is a CT of the abdomen which showed cholelithiasis. Patient the is also found to have elevated troponins no symptoms and chest pain. Patient was also company of shortness of breath denied any orthopnea or paroxysmal nocturnal dyspnea. Patient is found to have elevated troponins first one being 1.6 second one 1.3 and third one being 1.0. Patient was started on IV heparin after that patient started having dark stools IV heparin was discontinued patient was started on Protonix patient does use of nonsteroidal anti-emetics of the night. Patient does have history of COPD does have emphysema on the x-ray doesn't use any oxygen presently on 4 L oxygen not wheezing can use to smoke about one pack of cigarettes per day. Patient was started on ceftriaxone and metronidazole by general surgery which I believe is for gallbladder pathology. Patient also had an ultrasound of the right upper quadrant which showed prominent common bile duct mild, bladder dysfunction with dilation of intrahepatic biliary duct. 06/27/2020 Patient overall looks much better today no wheezing today. Unsure whether cardiology is planning on intervention during this hospitalization. Patient's serum creatinine improved with IV fluids which are being continued although patient is bit hyperchloremic also switch it to lactated Ringer's. Patient had lactic acidosis which improved. Patient is also being treated for a cold pos sible cholecystitis with Rocephin and metronidazole. 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 Patient was diagnosed with a chronic cholecystitis by general surgery. 06/28/2020 Patient has significant improvement in his overall condition patient doesn't have any abdominal pain at this time although being treated for chronic cholecystitis. Cardiology haven't decided on cardiac catheterization. Patient probably will not undergo cholecystectomy until after cardiac catheterization. She is bit hypokalemic potassium will be replaced. Constitutional: Denied any fatigue denied any fever. Cardio vascular: denied any chest pain, palpitations Gastrointestinal denied any nausea vomiting Pulmonary: Denied any shortness of breath cough Neurologic denied any new focal deficits All inpatient medications were reviewed and appropriate changes in these medications as dictated in the interval history and assessment and plan. Objective - Vital Signs Vital signs: Vital Signs Temp 98.8 F 06/28/20 00:00 Pulse 79 06/28/20 04:00 Resp 20 06/28/20 04:00 BP 126/66 06/28/20 04:00 Pulse Ox 100 06/28/20 04:00 Intake & Output 06/27/20 06/28/20 06/28/20 18:59 06:59 18:59 Intake Total 960 250 Balance 960 250 Weight 56.4 kg 56.2 kg Intake: Intake, IV Titration 250 Amount Lactated Ringers 1,000 ml 150 @ 75 mls/hr IV .[id number] [facility] Rx#:[id number] metroNIDAZOLE-NS PMX 500 100 mg In Saline 1 100ml.bag @ 100 mls/hr IVPB Q8HR [facility] Rx#:[id number] Oral 960 Other: # Voids 1 1 # Bowel Movements 2 1 - Exam PHYSICAL EXAMINATION: GENERAL: The patient is alert and oriented x3, not in any acute distress. Well developed, well nourished. HEENT: Pupils are round and equally reacting to light. EOMI. No scleral icterus. No conjunctival pallor. Normocephalic, atraumatic. No pharyngeal erythema. No thyromegaly. CARDIOVASCULAR: S1 and S2 present. No murmurs, rubs, or gallops. PULMONARY: Chest is clear to auscultation, no wheezing or crackles. ABDOMEN: Soft, nontender, nondistended, normoactive bowel sounds. No palpable organomegaly. MUSCULOSKELETAL: No joint swelling or deformity. EXTREMITIES: No cyanosis, clubbing, or pedal edema. NEUROLOGICAL: Gross neurological examination did not reveal any focal deficits. SKIN: No rashes. - Labs CBC & Chem 7: 06/28/20 07:25 06/28/20 07:25 Labs: Abnormal Lab Results - Last 24 Hours (Table) 06/27/20 06/27/20 06/28/20 Range/Units 08:43 08:43 07:25 WBC 3.4 L (3.8-10.6) k/uL RBC 2.57 L 2.40 L (4.30-5.90) m/uL Hgb 8.6 L D 8.0 L (13.0-17.5) gm/dL Hct 25.2 L 23.5 L (39.0-53.0) % Plt Count 75 L 66 L (150-450) k/uL Lymphocytes # 0.9 L (1.0-4.8) k/uL Potassium 3.3 L (3.5-5.1) mmol/L Chloride 112 H (98-107) mmol/L Carbon Dioxide 21 L (22-30) mmol/L BUN 38 H (9-20) mg/dL Glucose (74-99) mg/dL Calcium 8.2 L (8.4-10.2) mg/dL AST 62 H (17-59) U/L Total Protein 5.9 L (6.3-8.2) g/dL Albumin 3.2 L (3.5-5.0) g/dL 06/28/20 Range/Units 07:25 WBC (3.8-10.6) k/uL RBC (4.30-5.90) m/uL Hgb (13.0-17.5) gm/dL Hct (39.0-53.0) % Plt Count (150-450) k/uL Lymphocytes # (1.0-4.8) k/uL Potassium 3.0 L (3.5-5.1) mmol/L Chloride 111 H (98-107) mmol/L Carbon Dioxide (22-30) mmol/L BUN (9-20) mg/dL Glucose 102 H (74-99) mg/dL Calcium 8.0 L (8.4-10.2) mg/dL AST (17-59) U/L Total Protein (6.3-8.2) g/dL Albumin (3.5-5.0) g/dL Assessment and Plan Plan: -Possible acute non-ST elevation myocardial infarction: Patient was on IV heparin was discontinued because of GI bleed. Cardiology evaluated the patient no further intervention is being planned because of his acute GI bleed. 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 Prerenal azotemia may be related to sepsis to intravasc ular depletion, patient will be continued on IV fluids -Hyperlipidemia -Hypertension No pharmacologic DVT prophylaxis due to GI bleed
[2020-06-28] MEDS ORDERED: Potassium Replacement Protocol 1 EACH MISC MISCELLANE PRN (08:54)
[2020-06-28] MEDS: NICOTINE 14MG/24HR PATCH TRANSDERM SCH (09:03)
[2020-06-28] MEDS: HYDROcodone/APAP 10-325MG 1 EACH TAB PO SCH ×4 (09:03→22:07)
[2020-06-28] MEDS: PANTOPRAZOLE 40 MG/10 ML VIAL IVP SCH ×2 (09:03→20:20)
[2020-06-28] MEDS: METOPROLOL TARTRATE 50 MG TAB PO SCH (09:03)
--- NOTE | 2020-06-28 10:26 | P.PN ---
Subjective Progress Note Date: 06/28/20 Principal diagnosis: Upper GI bleed, chronic cholecystitis Patient denies pain. No chest pain. He is complaining of increased fatigue. White blood cell count 3.4, hemoglobin 8.0. Platelets are at 66 today. Objective - Vital Signs Vital signs: Vital Signs Temp 99 F 06/28/20 09:00 Pulse 66 06/28/20 09:00 Resp 18 06/28/20 09:00 BP 134/79 06/28/20 09:00 Pulse Ox 100 06/28/20 09:00 Intake & Output 06/27/20 06/28/20 06/28/20 18:59 06:59 18:59 Intake Total 960 250 Balance 960 250 Weight 56.4 kg 56.2 kg Intake: Intake, IV Titration 250 Amount Lactated Ringers 1,000 ml 150 @ 75 mls/hr IV .[id number] [facility] Rx#:[id number] metroNIDAZOLE-NS PMX 500 100 mg In Saline 1 100ml.bag @ 100 mls/hr IVPB Q8HR [facility] Rx#:[id number] Oral 960 Other: # Voids 1 1 # Bowel Movements 2 1 - Exam Abdomen: Soft, nontender, nondistended - Labs CBC & Chem 7: 06/28/20 07:25 06/28/20 07:25 Labs: Abnormal Lab Results - Last 24 Hours (Table) 06/28/20 06/28/20 Range/Units 07:25 07:25 WBC 3.4 L (3.8-10.6) k/uL RBC 2.40 L (4.30-5.90) m/uL Hgb 8.0 L (13.0-17.5) gm/dL Hct 23.5 L (39.0-53.0) % Plt Count 66 L (150-450) k/uL Potassium 3.0 L (3.5-5.1) mmol/L Chloride 111 H (98-107) mmol/L Glucose 102 H (74-99) mg/dL Calcium 8.0 L (8.4-10.2) mg/dL Assessment and Plan (1) Chronic cholecystitis Narrative/Plan: Patient complaining of fatigue today. Likely on the basis of anemia. Continue cardiac workup. Continue IV antibiotics. Recheck labs tomorrow. Will follow. Current Visit: Yes Status: Acute Code(s): K81.1 - CHRONIC CHOLECYSTITIS SNOMED Code(s): 76634768
[2020-06-28] MEDS: ALBUTEROL NEBULIZED 2.5 MG/3 ML INHALATION PRN ×3 (11:23→20:17)
--- NOTE | 2020-06-28 13:10 | P.PN ---
Subjective Progress Note Date: 06/28/20 HISTORY OF PRESENT ILLNESS: Patient examined this morning at the bedside. He is complaining of fatigue. He denies chest pain. He reports shortness of breath. He is on 2 L nasal cannula with oxygen saturations greater than 92%. Heart rate in the 60s. Hemoglobin 8.0. Potassium 3.0. PHYSICAL EXAM: VITAL SIGNS: Reviewed. GENERAL: Well-developed in no acute distress. NECK: Supple. No JVD or thyromegaly LUNGS: Respirations even and unlabored. Lungs diminished bilaterally. HEART: Regular rate and rhythm. S1 and S2 heard. Systolic murmur. EXTREMITIES: Normal range of motion. No clubbing or cyanosis. Peripheral pulses intact. No lower extremity edema ASSESSMENT: Non-ST elevated myocardial infarction Acute GI bleed, status post EGD with cauterization of duodenal AVM Chronic cholecystitis Acute kidney injury Hypertension Hyperlipidemia COPD Nicotine dependence Hypokalemia PLAN: Continue current cardiac medications Continue to monitor hemoglobin Continue antibiotics per general surgery Replace potassium Check magnesium level Continue to hold aspirin. May resume in one week per Dr. Greenberg Patient will undergo cardiac catheterization on an outpatient basis. Likely discharge home tomorrow. Nurse practitioner note has been reviewed by physician. Signing provider agrees with the documented findings, assessment, and plan of care. Objective - Vital Signs Vital signs: Vital Signs Temp 99 F 06/28/20 09:00 Pulse 64 06/28/20 11:35 Resp 18 06/28/20 09:00 BP 134/79 06/28/20 09:00 Pulse Ox 100 06/28/20 09:00 Intake & Output 06/27/20 06/28/20 06/28/20 18:59 06:59 18:59 Intake Total 960 250 720 Balance 960 250 720 Weight 56.4 kg 56.2 kg Intake: Intake, IV Titration 250 Amount Lactated Ringers 1,000 ml 150 @ 75 mls/hr IV .[id number] [facility] Rx#:[id number] metroNIDAZOLE-NS PMX 500 100 mg In Saline 1 100ml.bag @ 100 mls/hr IVPB Q8HR [facility] Rx#:[id number] Oral 960 720 Other: # Voids 1 1 1 # Bowel Movements 2 1 - Labs CBC & Chem 7: 06/28/20 07:25 06/28/20 07:25 Labs: Abnormal Lab Results - Last 24 Hours (Table) 06/28/20 06/28/20 Range/Units 07:25 07:25 WBC 3.4 L (3.8-10.6) k/uL RBC 2.40 L (4.30-5.90) m/uL Hgb 8.0 L (13.0-17.5) gm/dL Hct 23.5 L (39.0-53.0) % Plt Count 66 L (150-450) k/uL Potassium 3.0 L (3.5-5.1) mmol/L Chloride 111 H (98-107) mmol/L Glucose 102 H (74-99) mg/dL Calcium 8.0 L (8.4-10.2) mg/dL
[2020-06-28] MEDS: POTASSIUM CHLORIDE ER 20 MEQ TAB.ER PO SCH ×2 (13:21→17:23)
[2020-06-28] MEDS: ISOSORBIDE MONONITRATE ER 15 MG TAB PO SCH (13:32)
[2020-06-28] MEDS: MELATONIN 5 MG TABLET PO SCH (20:20)
[2020-06-28] MEDS: SERTRALINE 100 MG TAB PO SCH (20:20)
[2020-06-28] MEDS: TAMSULOSIN 0.4 MG CAP.ER.24H PO SCH (20:20)
[2020-06-28] MEDS: ZOLPIDEM 10 MG TAB PO PRN (20:20)
[2020-06-28] MEDS: ATORVASTATIN 80 MG TAB PO SCH (20:20)
[2020-06-29] MEDS: SUCRALFATE 1 GM TAB PO SCH ×2 (06:26→16:25)
[2020-06-29 07:53] LABS: HCT 23.1 % (39.0-53.0); HGB 7.7 gm/dL (13.0-17.5); MCH 33.2 pg (25.0-35.0); MCHC 33.5 g/dL (31.0-37.0); MCV 99.1 fL (80.0-100.0); Mean Platelet Volume 10.9; RBC 2.33 m/uL (4.30-5.90); RDW 14.5 % (11.5-15.5); WBC 2.5 k/uL (3.8-10.6)
[2020-06-29 07:55] LABS: Platelet Count 62 k/uL (150-450)
[2020-06-29 08:07] LABS: African American GFR (CKD) >90 (>60 ml/min/1.73 sqM); Anion Gap 3 mmol/L; Blood Urea Nitrogen 14 mg/dL (9-20); Calcium 8.2 mg/dL (8.4-10.2); Carbon Dioxide 27 mmol/L (22-30); Chloride 111 mmol/L (98-107); Glucose 109 mg/dL (74-99); Non-African American GFR(CKD) 83 (>60 ml/min/1.73 sqM); Potassium 3.2 mmol/L (3.5-5.1); Sodium 141 mmol/L (137-145)
[2020-06-29] MEDS ORDERED: POTASSIUM CHLORIDE ER 20 MEQ TAB.ER PO STA (08:17)
[2020-06-29] MEDS: PANTOPRAZOLE 40 MG/10 ML VIAL IVP SCH ×2 (08:56→20:04)
[2020-06-29] MEDS: metroNIDAZOLE-NS PMX 500 MG in SALINE 1 100ML.BAG IVPB SCH ×3 (08:56→23:12)
[2020-06-29] MEDS: NICOTINE 14MG/24HR PATCH TRANSDERM SCH (08:56)
[2020-06-29] MEDS: HYDROcodone/APAP 10-325MG 1 EACH TAB PO SCH ×4 (08:57→22:58)
[2020-06-29] MEDS: METOPROLOL TARTRATE 50 MG TAB PO SCH (08:57)
[2020-06-29] MEDS: ISOSORBIDE MONONITRATE ER 15 MG TAB PO SCH (08:57)
[2020-06-29] MEDS: LACTATED RINGERS 1,000 ML IV SCH (08:58)
--- NOTE | 2020-06-29 10:18 | P.PN ---
<Opal Oneill - Last Filed: 06/29/20 10:10> Subjective Progress Note Date: 06/29/20 CHIEF COMPLAINT: Upper GI bleed, chronic cholecystitis HISTORY OF PRESENT ILLNESS: Patient is complaining more of shortness of breath today. He did have mild cough. IV fluids will be hep-locked. He reports that his stool this morning was more brown with some black. He is still complaining of some epigastric and right upper quadrant pain but it has decreased since admission. He denies any nausea or vomiting. Denies any chest pain. Afebrile. WBC 2.5 hemoglobin is 7.7 potassium is 3.2 he is on a regular diet. Cardiology is recommending cardiac cath in the outpatient setting PHYSICAL EXAM: VITAL SIGNS: Reviewed. GENERAL: Well-developed in no acute distress. HEENT: No sclera icterus. Extraocular movements grossly intact. Moist buccal mucosa. Head is atraumatic, normocephalic. ABDOMEN: Soft. Nondistended. Mild tenderness with palpation of the epigastric and right upper quadrant area NEUROLOGIC: Alert and oriented. Cranial nerves II through XII grossly intact. ASSESSMENT: 1. Chronic cholecystitis 2. Acute Upper GI bleed status post EGD with cauterization of duodenal AVM 3. Anemia 4. Hypokalemia PLAN: -Hep-Lock IV fluids -Continue regular diet -Continue antibiotics -Continue to monitor hemoglobin -Continue to monitor signs and symptoms of bleeding -Continue Protonix and Carafate -Replace potassium [facility] note has been reviewed by physician. Signing provider agrees with the documented findings, assessment, and plan of care. Objective - Vital Signs Vital signs: Vital Signs Temp 98.8 F 06/29/20 08:10 Pulse 78 06/29/20 08:10 Resp 18 06/29/20 08:10 BP 123/67 06/29/20 08:10 Pulse Ox 99 06/29/20 08:10 Intake & Output 06/28/20 06/29/20 06/29/20 18:59 06:59 18:59 Intake Total 960 Output Total 2 502 Balance 958 -502 Weight 58.6 kg Intake: Oral 960 Output: Stool 2 502 Other: # Voids 1 1 1 # Bowel Movements 2 1 - Labs CBC & Chem 7: 06/29/20 07:16 06/29/20 07:16 Labs: Abnormal Lab Results - Last 24 Hours (Table) 06/29/20 06/29/20 Range/Units 07:16 07:16 WBC 2.5 L (3.8-10.6) k/uL RBC 2.33 L (4.30-5.90) m/uL Hgb 7.7 L (13.0-17.5) gm/dL Hct 23.1 L (39.0-53.0) % Plt Count 62 L (150-450) k/uL Potassium 3.2 L (3.5-5.1) mmol/L Chloride 111 H (98-107) mmol/L Glucose 109 H (74-99) mg/dL Calcium 8.2 L (8.4-10.2) mg/dL <Ed Rendon - Last Filed: 06/29/20 14:36> Subjective As above. Patient having some shortness of breath this morning. Mild pain right upper quadrant. Stools becoming brown in color. Continue cardiac workup. Plan outpatient antibiotics. Follow-up in office after discharge. Objective - Vital Signs Vital signs: Vital Signs Temp 98.8 F 06/29/20 08:10 Pulse 68 06/29/20 12:05 Resp 18 06/29/20 12:05 BP 134/71 06/29/20 12:05 Pulse Ox 98 06/29/20 12:05 Intake & Output 06/28/20 06/29/20 06/29/20 18:59 06:59 18:59 Intake Total 960 240 Output Total 2 502 Balance 958 -502 240 Weight 58.6 kg 58.6 kg Intake: Oral 960 240 Output: Stool 2 502 Other: # Voids 1 1 1 # Bowel Movements 2 1 - Labs CBC & Chem 7: 06/29/20 07:16 06/29/20 07:16 Labs: Abnormal Lab Results - Last 24 Hours (Table) 06/29/20 06/29/20 Range/Units 07:16 07:16 WBC 2.5 L (3.8-10.6) k/uL RBC 2.33 L (4.30-5.90) m/uL Hgb 7.7 L (13.0-17.5) gm/dL Hct 23.1 L (39.0-53.0) % Plt Count 62 L (150-450) k/uL Potassium 3.2 L (3.5-5.1) mmol/L Chloride 111 H (98-107) mmol/L Glucose 109 H (74-99) mg/dL Calcium 8.2 L (8.4-10.2) mg/dL Assessment and Plan (1) Chronic cholecystitis Current Visit: Yes Status: Acute Code(s): K81.1 - CHRONIC CHOLECYSTITIS SNOMED Code(s): 59573109
[2020-06-29] MEDS: ALBUTEROL NEBULIZED 2.5 MG/3 ML INHALATION PRN ×3 (11:04→18:55)
--- NOTE | 2020-06-29 12:51 | P.PN ---
Subjective Patient seen and examined resting comfortably lying flat in no acute distress. HEENT denies symptoms of chest pain, shortness of breath, dizziness or palpitations. Blood pressure 134/71 heart rate 68 afebrile maintaining oxygen saturation on nasal cannula. Laboratory data reviewed, WBC 2.5, hemoglobin 7.7, platelets 62, sodium 141, potassium 3.2, creatinine 0.91. Currently maintained on atorvastatin 80 mg daily, Imdur 15 mg daily and Lopressor 50 mg daily. GENERAL: Well-appearing, well-nourished and in no acute distress. NECK: Supple without JVD or thyromegaly. LUNGS: Breath sounds clear to auscultation bilaterally. Respiration equal and unlabored. No wheezes, rales or rhonchi. HEART: Regular rate and rhythm with systolic ejection murmur at the base, no rubs or gallops. S1 and S2 heard. EXTREMITIES: Normal range of motion, no edema. No clubbing or cyanosis. Peripheral pulses intact. ASSESSMENT Non-ST elevated myocardial infarction Acute GI bleeding status post EGD with cauterization of duodenal AVM Anemia secondary to GI bleeding Hypokalemia Acute kidney injury Aortic stenosis Hypertension Dyslipidemia COPD Chronic nicotine dependence PLAN Stable from a cardiac perspective on current medical regimen. Hold aspirin for any blood thinning antiplatelet medications until the patient follows with Dr. Greenberg in the outpatient setting. He will undergo outpatient cardiac catheterization. We will follow along as needed, please call with further questions or concerns. Nurse Practitioner note has been reviewed, I agree with a documented findings and plan of care. Patient was seen and examined. Objective - Vital Signs Vital signs: Vital Signs Temp 98.8 F 06/29/20 08:10 Pulse 68 06/29/20 12:05 Resp 18 06/29/20 12:05 BP 134/71 06/29/20 12:05 Pulse Ox 98 06/29/20 12:05 Intake & Output 06/28/20 06/29/20 06/29/20 18:59 06:59 18:59 Intake Total 960 Output Total 2 502 Balance 958 -502 Weight 58.6 kg Intake: Oral 960 Output: Stool 2 502 Other: # Voids 1 1 1 # Bowel Movements 2 1 - Labs CBC & Chem 7: 06/29/20 07:16 06/29/20 07:16 Labs: Abnormal Lab Results - Last 24 Hours (Table) 06/29/20 06/29/20 Range/Units 07:16 07:16 WBC 2.5 L (3.8-10.6) k/uL RBC 2.33 L (4.30-5.90) m/uL Hgb 7.7 L (13.0-17.5) gm/dL Hct 23.1 L (39.0-53.0) % Plt Count 62 L (150-450) k/uL Potassium 3.2 L (3.5-5.1) mmol/L Chloride 111 H (98-107) mmol/L Glucose 109 H (74-99) mg/dL Calcium 8.2 L (8.4-10.2) mg/dL
[2020-06-29 13:46] VITALS: BMI 18.0
--- NOTE | 2020-06-29 14:02 | CDI ---
Documentation Clarification Form Date: 06/29/2020 01:46:35 PM From: Lorena Marques RN, CCDS Admit Date: 06/25/2020 11:50:00 PM Patient Name: Ariel Cooley Visit Number: [id number] ATTENTION: The Clinical Documentation Specialists (CDI) and [facility] Coding Staff appreciate your assistance in clarifying documentation. Please respond to the clarification below the line at the bottom and electronically sign. The CDI & [facility] Coding staff will review the response and follow-up if needed. Please note: Queries are made part of the Legal Health Record. If you have any questions, please contact the author of this message via ITS. Dr. Max Anemia is documented in the 06/28 Progress Notes from all consults and requires Attending MD confirmation and specificity. History/Risk Factors: COPD, Eye disorder, hyperlipidemia, HTN, Smoking, HLD, BPH, varicose veins Clinical indicators: 06/29 Cardiology Progress Note: "Acute GI bleeding status post EGD with cauterization of duodenal AVM Anemia secondary to GI bleeding." 06/28 Attending progress note: "Acute upper GI bleed patient is on Protonix patient had an upper GI endoscopy which showed a arteriovenous malformation which was cauterized." 06/25-06/29 Hemoglobin: 11/8.6/8/7.7 06/25-06/29 Hematocrit:33/25.2/23.5/23.1 Treatment: Lab monitoring Am daily Preoperative Dx: Upper GI bleed, epigastric pain Postoperative Dx: Duodenitis with small AVM, gastritis, hiatal hernia, Schatzki's ring Procedure: EGD with cauterization duodenal AVM In order to capture the severity of condition, please clarify the type of anemia and etiology if known: Acute blood loss anemia Acute on chronic blood loss anemia Chronic blood loss anemia Iron deficiency anemia Nutritional anemia Anemia of chronic disease Unable to determine Other, please specify (Last Form Revision: June 2019) Acute blood loss anemia MTDD
--- NOTE | 2020-06-29 14:18 | CDI ---
Documentation Clarification Form Date: 06/29/2020 02:03:23 PM From: Lorena Marques RN, CCDS Admit Date: 06/25/2020 11:50:00 PM Patient Name: Ariel Pablo Visit Number: [id number] ATTENTION: The Clinical Documentation Specialists (CDI) and [facility] Coding Staff appreciate your assistance in clarifying documentation. Please respond to the clarification below the line at the bottom and electronically sign. The CDI & [facility] Coding staff will review the response and follow-up if needed. Please note: Queries are made part of the Legal Health Record. If you have any questions, please contact the author of this message via ITS. Dr. Max 06/26 Malnutrition has been documented in Cardiology Consult on 06/27 and requires further specificity. History/Risk Factors: Copd, HLD, HTN, OA, NSTEMI, Acute GIB with Duodenal AVM with anemia secondary to GIB, KAYLEEN, chronic nicotine dependence Clinical Indicators: 06/26 Cardiology Consult: "He is quite emaciated, malnourished and does not drink alcohol but smokes heavily, with weight loss over last 3 months" 318 - 06/26 Labs: T protein 9.6/7.2, Albumin 5.4/4.3 Current BMI: 18 06/26 H&P: "thin built male" Insufficient energy intake: Poor dietary intake 06/27 Dietary consult: Chronic moderate malnutrition, Underweight, Moderate buccal fat pad, temporalis, and pectoral muscle wasting Treatment: Dietary Consult: 06/27 & 06/29 Completed Supplements: Ensure Enlive BID Lab monitoring: Am Daily In your professional opinion, can you please clarify if these findings signify one of the following conditions? Mild Protein-Calorie Malnutrition Moderate Protein-Calorie Malnutrition Severe Protein-Calorie Malnutrition Other condition, please specify Unable to determine (Last Revision: October 2018) Moderate Protein-Calorie Malnutrition MTDD
[2020-06-29] MEDS: MELATONIN 5 MG TABLET PO SCH (20:03)
[2020-06-29] MEDS: TAMSULOSIN 0.4 MG CAP.ER.24H PO SCH (20:03)
[2020-06-29] MEDS: ZOLPIDEM 10 MG TAB PO PRN (20:03)
[2020-06-29] MEDS: ATORVASTATIN 80 MG TAB PO SCH (20:03)
[2020-06-29] MEDS: SERTRALINE 100 MG TAB PO SCH (20:03)
--- NOTE | 2020-06-29 21:55 | P.PN ---
Subjective Progress Note Date: 06/29/20 Principal diagnosis: NSTEMI< GI BLEED Mr. Pablo is a 75-year-old male who is being admitted for nausea vomiting abdominal pain and diarrhea. Patient had a CAT scan showing cholelithiasis and he was also found to have elevated troponins. The patient was started on IV heparin after which he started to have dark-colored stool, his heparin was discontinued and patient was started on Protonix. On 06/29/2020 -patient was seen and examined at the bedside. He states that he had a stool this morning which was dark in color and still complains of epigastric pain and right upper quadrant pain, but decreased since admission. Patient denies having any nausea or vomiting. No chest pain or difficulty in breathing. On reviewing his vitals afebrile, heart rate in 70s to 80s, respiratory rate 16, blood pressure 144 x 66 and saturating at 99% on 2 L of oxygen. On reviewing the labs hemoglobin 7.7 platelet count 62 sodium 141 potassium 3.2 chloride 111 bicarb 27. BUN 14 and creatinine 0.91 calcium 8.2. On review of systems constitutional: Denied any fatigue denied any fever. Cardio vascular: denied any chest pain, palpitations Gastrointestinal: denied any nausea vomiting Pulmonary: Denied any shortness of breath cough Active Medications Hydrocodone Bitart/Acetaminophen (Hydrocodone/Apap 10-325mg 1 Each Tab) 1 each PO Q6H PRN PRN Reason: Pain Last Admin: 06/28/20 05:28 Dose: 1 each Documented by: Hydrocodone Bitart/Acetaminophen (Hydrocodone/Apap 10-325mg 1 Each Tab) 1 each PO QID [facility] Last Admin: 06/29/20 18:57 Dose: 1 each Documented by: Albuterol Sulfate (Albuterol Nebulized 2.5 Mg/3 Ml) 2.5 mg INHALATION RT-QID PRN PRN Reason: Shortness Of Breath Last Admin: 06/29/20 18:55 Dose: 2.5 mg Documented by: Atorvastatin Calcium (Atorvastatin 80 Mg Tab) 80 mg PO HS [facility] Last Admin: 06/29/20 20:03 Dose: 80 mg Documented by: Ceftriaxone Sodium 1 gm/ (Sodium Chloride) 50 mls @ 100 mls/hr IVPB Q24HR [facility] Last Admin: 06/29/20 09:19 Dose: 100 mls/hr Documented by: Metronidazole 500 mg/ IV (Solution) 100 mls @ 100 mls/hr IVPB Q8HR [facility] Last Admin: 06/29/20 16:24 Dose: 100 mls/hr Documented by: Isosorbide Mononitrate (Isosorbide Mononitrate Er 15 Mg Tab) 15 mg PO DAILY [facility] Last Admin: 06/29/20 08:57 Dose: 15 mg Documented by: Melatonin (Melatonin 5 Mg Tablet) 10 mg PO HS [facility] Last Admin: 06/29/20 20:03 Dose: 10 mg Documented by: Metoprolol Tartrate (Metoprolol Tartrate 50 Mg Tab) 50 mg PO DAILY [facility] Last Admin: 06/29/20 08:57 Dose: 50 mg Documented by: Miscellaneous Information (Potassium Replacement Protocol 1 Each Misc) 1 each MISCELLANE DAILY PRN; Protocol PRN Reason: Per Protocol Nicotine (Nicotine 14mg/24hr Patch) 1 patch TRANSDERM DAILY [facility] Last Admin: 06/29/20 08:56 Dose: 1 patch Documented by: Nitroglycerin (Nitroglycerin Sl Tabs 0.4 Mg Tab) 0.4 mg SUBLINGUAL Q5M PRN PRN Reason: Chest Pain Pantoprazole Sodium (Pantoprazole 40 Mg/10 Ml Vial) 40 mg IVP BID [facility] Last Admin: 06/29/20 20:04 Dose: 40 mg Documented by: Sertraline HCl (Sertraline 100 Mg Tab) 150 mg PO [facility] Last Admin: 06/29/20 20:03 Dose: 150 mg Documented by: Sucralfate (Sucralfate 1 Gm Tab) 1 gm PO AC-BID [facility] Last Admin: 06/29/20 16:25 Dose: 1 gm Documented by: Tamsulosin HCl (Tamsulosin 0.4 Mg Cap.Er.24h) 0.4 mg PO [facility] Last Admin: 06/29/20 20:03 Dose: 0.4 mg Documented by: Zolpidem Tartrate (Zolpidem 10 Mg Tab) 10 mg PO HS PRN PRN Reason: Insomnia Last Admin: 06/29/20 20:03 Dose: 10 mg Documented by: Objective - Vital Signs Vital signs: Vital Signs Temp 98.8 F 06/29/20 08:10 Pulse 68 06/29/20 12:05 Resp 18 06/29/20 12:05 BP 134/71 06/29/20 12:05 Pulse Ox 98 06/29/20 12:05 Intake & Output 06/28/20 06/29/20 06/29/20 18:59 06:59 18:59 Intake Total 960 240 Output Total 2 502 Balance 958 -502 240 Weight 58.6 kg 58.6 kg Intake: Oral 960 240 Output: Stool 2 502 Other: # Voids 1 1 1 # Bowel Movements 2 1 - Exam PHYSICAL EXAMINATION: GENERAL: The patient is alert and oriented x3, not in any acute distress. Chronically ill appearing HEENT: Pupils are round and equally reacting to light. EOMI. No scleral icterus. No conjunctival pallor. Normocephalic, atraumatic. No pharyngeal erythema. No thyromegaly. CARDIOVASCULAR: S1 and S2 present. No murmurs, rubs, or gallops. PULMONARY: Diminished BS in all lung maldonado ABDOMEN: Soft, nontender, nondistended, normoactive bowel sounds. No palpable organomegaly. MUSCULOSKELETAL: No joint swelling or deformity. EXTREMITIES: No cyanosis, clubbing, or pedal edema. NEUROLOGICAL: Gross neurological examination did not reveal any focal deficits. SKIN: No rashes. - Labs CBC & Chem 7: 06/30/20 07:14 06/30/20 07:14 Labs: Abnormal Lab Results - Last 24 Hours (Table) 06/29/20 06/29/20 Range/Units 07:16 07:16 WBC 2.5 L (3.8-10.6) k/uL RBC 2.33 L (4.30-5.90) m/uL Hgb 7.7 L (13.0-17.5) gm/dL Hct 23.1 L (39.0-53.0) % Plt Count 62 L (150-450) k/uL Potassium 3.2 L (3.5-5.1) mmol/L Chloride 111 H (98-107) mmol/L Glucose 109 H (74-99) mg/dL Calcium 8.2 L (8.4-10.2) mg/dL Assessment and Plan Assessment: ASSESSMENT Non-ST elevation [place] GI bleed Cholelithiasis Hypertension Hyperlipidemia COPD Anion gap metabolic acidosis Leukocytosis Acute renal failure Hypertension PLAN: Patient's IV heparin was discontinued because of the GI bleed. Cardiology on board they recommended outpatient cardiac catheterization. We will hold off aspirin and any antiplatelet therapy for now due to acute GI bleed. Continue with Protonix. Patient is being followed by general surgery for cholecystitis, he has been continued on antibiotics in the form of ceftriaxone and flagyl. SCDs for DVT prophylaxis as the patient has GI bleed and low platelet count. Continue with the rest of his current medication regimen and further recommendations to follow depending on the progress of the patient.
[2020-06-30] MEDS: SUCRALFATE 1 GM TAB PO SCH ×2 (06:40→17:26)
[2020-06-30] MEDS: HYDROcodone/APAP 10-325MG 1 EACH TAB PO PRN (06:40)
[2020-06-30 07:56] LABS: Basophils % (A) 0 %; Eosinophils % (A) 1 %; HCT 22.9 % (39.0-53.0); HGB 7.9 gm/dL (13.0-17.5); Lymphocytes # (A) 0.8 k/uL (1.0-4.8); Lymphocytes % (A) 30 %; MCH 33.8 pg (25.0-35.0); MCHC 34.5 g/dL (31.0-37.0); MCV 97.9 fL (80.0-100.0); Mean Platelet Volume 11.2; Monocytes # (A) 0.3 k/uL (0-1.0); Monocytes % (A) 11 %; Neutrophils # (A) 1.5 k/uL (1.3-7.7); Neutrophils % (A) 56 %; RBC 2.34 m/uL (4.30-5.90); RDW 14.2 % (11.5-15.5); WBC 2.7 k/uL (3.8-10.6)
[2020-06-30 08:03] LABS: Calcium 8.1 mg/dL (8.4-10.2); Potassium 3.1 mmol/L (3.5-5.1)
[2020-06-30 08:06] LABS: Platelet Count 64 k/uL (150-450)
[2020-06-30] MEDS: metroNIDAZOLE-NS PMX 500 MG in SALINE 1 100ML.BAG IVPB SCH ×3 (09:00→22:58)
[2020-06-30] MEDS: PANTOPRAZOLE 40 MG/10 ML VIAL IVP SCH ×2 (09:01→20:39)
[2020-06-30] MEDS: HYDROcodone/APAP 10-325MG 1 EACH TAB PO SCH ×4 (09:01→22:58)
[2020-06-30] MEDS: METOPROLOL TARTRATE 50 MG TAB PO SCH (09:01)
[2020-06-30] MEDS: NICOTINE 14MG/24HR PATCH TRANSDERM SCH (09:02)
[2020-06-30] MEDS: ISOSORBIDE MONONITRATE ER 15 MG TAB PO SCH (09:02)
[2020-06-30] MEDS ORDERED: POTASSIUM CHLORIDE ER 20 MEQ TAB.ER PO STA (09:13)
--- NOTE | 2020-06-30 10:53 | P.PN ---
<Opal Oneill - Last Filed: 06/30/20 10:45> Subjective Progress Note Date: 06/30/20 CHIEF COMPLAINT: Upper GI bleed, chronic cholecystitis HISTORY OF PRESENT ILLNESS: Surgical service is following in regards to patient 's upper GI bleed and chronic cholecystitis. Patient reports minimal pain in the right upper quadrant and epigastric area. He reports that his pain is better than yesterday. He denies any nausea or vomiting. He is still having blackish brownish stools. He is reporting that the stools are more brown than black. Hemoglobin is up at 7.9. His shortness of breath is better than yesterday. He is currently off of oxygen. Afebrile. Hemoglobin 7.9 WBC 2.7 platelets 64 potassium 3.1 magnesium 1.7 Patient is complaining that he does not like the heart healthy diet or the hospital food. PHYSICAL EXAM: VITAL SIGNS: Reviewed. GENERAL: Well-developed in no acute distress. HEENT: No sclera icterus. Extraocular movements grossly intact. Moist buccal mucosa. Head is atraumatic, normocephalic. ABDOMEN: Soft. Nondistended. Minimal tenderness with palpation of the epigastric and right upper quadrant area NEUROLOGIC: Alert and oriented. Cranial nerves II through XII grossly intact. ASSESSMENT: 1. Chronic cholecystitis 2. Acute Upper GI bleed status post EGD with cauterization of duodenal AVM 3. Anemia 4. Hypokalemia 5. Hypomagnesemia PLAN: -Continue regular diet -Continue antibiotics -Recommend outpatient antibiotics -Continue to monitor hemoglobin -Continue to monitor signs and symptoms of bleeding -Continue Protonix and Carafate -Replace potassium -Replace magnesium Physician Balance Weigher note has been reviewed by physician. Signing provider agrees with the documented findings, assessment, and plan of care. Objective - Vital Signs Vital signs: Vital Signs Temp 99.1 F 06/30/20 04:10 Pulse 65 06/30/20 04:10 Resp 18 06/30/20 04:10 BP 131/63 06/30/20 04:10 Pulse Ox 96 06/30/20 04:10 Intake & Output 06/29/20 06/30/20 06/30/20 18:59 06:59 18:59 Intake Total 880 540 Balance 880 540 Weight 58.6 kg 59.2 kg Intake: Intake, IV Titration 150 Amount Lactated Ringers 1,000 ml 150 @ 75 mls/hr IV .[id number] [facility] Rx#:[id number] Oral 730 540 Other: # Voids 1 1 1 # Bowel Movements 2 1 1 - Labs CBC & Chem 7: 06/30/20 07:14 06/30/20 07:14 Labs: Abnormal Lab Results - Last 24 Hours (Table) 06/30/20 06/30/20 Range/Units 07:14 07:14 WBC 2.7 L (3.8-10.6) k/uL RBC 2.34 L (4.30-5.90) m/uL Hgb 7.9 L (13.0-17.5) gm/dL Hct 22.9 L (39.0-53.0) % Plt Count 64 L (150-450) k/uL Lymphocytes # 0.8 L (1.0-4.8) k/uL Potassium 3.1 L (3.5-5.1) mmol/L Chloride 108 H (98-107) mmol/L Glucose 103 H (74-99) mg/dL Calcium 8.1 L (8.4-10.2) mg/dL <Ed Rendon - Last Filed: 06/30/20 16:12> Subjective As above. Patient denies abdominal pain during my evaluation. Tolerating diet although refusing the heart healthy option. No chest pain today. Stools remain dark today he says although more brown then black. Continue antiacids. Outpatient antiacid therapy and antibiotics. Follow-up as outpatient. Objective - Vital Signs Vital signs: Vital Signs Temp 97.8 F 06/30/20 08:00 Pulse 64 06/30/20 12:00 Resp 18 06/30/20 04:10 BP 137/69 06/30/20 12:00 Pulse Ox 96 06/30/20 12:00 Intake & Output 06/29/20 06/30/20 06/30/20 18:59 06:59 18:59 Intake Total 880 780 Output Total 300 Balance 880 480 Weight 58.6 kg 59.2 kg Intake: Intake, IV Titration 150 Amount Lactated Ringers 1,000 ml 150 @ 75 mls/hr IV .[id number] [facility] Rx#:[id number] Oral 730 780 Output: Urine 300 Other: # Voids 1 1 1 # Bowel Movements 2 1 1 - Labs CBC & Chem 7: 06/30/20 07:14 06/30/20 07:14 Labs: Abnormal Lab Results - Last 24 Hours (Table) 06/30/20 06/30/20 Range/Units 07:14 07:14 WBC 2.7 L (3.8-10.6) k/uL RBC 2.34 L (4.30-5.90) m/uL Hgb 7.9 L (13.0-17.5) gm/dL Hct 22.9 L (39.0-53.0) % Plt Count 64 L (150-450) k/uL Lymphocytes # 0.8 L (1.0-4.8) k/uL Potassium 3.1 L (3.5-5.1) mmol/L Chloride 108 H (98-107) mmol/L Glucose 103 H (74-99) mg/dL Calcium 8.1 L (8.4-10.2) mg/dL Assessment and Plan (1) Chronic cholecystitis Current Visit: Yes Status: Acute Code(s): K81.1 - CHRONIC CHOLECYSTITIS SNOMED Code(s): 76200708
[2020-06-30] MEDS ORDERED: MAGNESIUM SULFATE-D5W PMX 1 GM in DEXTROSE/WATER 1 100ML.BAG IVPB ONE (11:00)
--- NOTE | 2020-06-30 13:16 | P.PN ---
Subjective Progress Note Date: 06/30/20 Principal diagnosis: NSTEMI< GI BLEED Mr. Pablo is a 75-year-old male who is being admitted for nausea vomiting abdominal pain and diarrhea. Patient had a CAT scan showing cholelithiasis and he was also found to have elevated troponins. The patient was started on IV heparin after which he started to have dark-colored stool, his heparin was discontinued and patient was started on Protonix. On 06/29/2020 -patient was seen and examined at the bedside. He states that he had a stool this morning which was dark in color and still complains of epigastric pain and right upper quadrant pain, but decreased since admission. Patient denies having any nausea or vomiting. No chest pain or difficulty in breathing. On reviewing his vitals afebrile, heart rate in 70s to 80s, respiratory rate 16, blood pressure 144 x 66 and saturating at 99% on 2 L of oxygen. On reviewing the labs hemoglobin 7.7 platelet count 62 sodium 141 potassium 3.2 chloride 111 bicarb 27. BUN 14 and creatinine 0.91 calcium 8.2. On 06/30/2020 - patient was seen and examined at bedside. He complains of pain in the epigastric area and right upper quadrant. He denied having any nausea or vomiting. Still having dark-colored stool. Patient's hemoglobin has been st able, today it is at 7.9. On reviewing his vitals temperature of 99.1, heart rate 63, respiratory rate 18, blood pressure 131 was 63, saturating at 96% on room air. On reviewing his labs white count of 2.7, hemoglobin 7.9, platelets 64. Sodium 139, and accommodation 3.1, chloride 108, BUN 11, creatinine 0.97. Magnesium 1.7. On review of systems constitutional: Denied any fatigue denied any fever. Cardio vascular: denied any chest pain, palpitations Gastrointestinal: denied any nausea vomiting Pulmonary: Denied any shortness of breath or cough Active Medications Hydrocodone Bitart/Acetaminophen (Hydrocodone/Apap 10-325mg 1 Each Tab) 1 each PO Q6H PRN PRN Reason: Pain Last Admin: 06/30/20 06:40 Dose: 1 each Documented by: Hydrocodone Bitart/Acetaminophen (Hydrocodone/Apap 10-325mg 1 Each Tab) 1 each PO QID [facility] Last Admin: 06/30/20 09:01 Dose: 1 each Documented by: Albuterol Sulfate (Albuterol Nebulized 2.5 Mg/3 Ml) 2.5 mg INHALATION RT-QID PRN PRN Reason: Shortness Of Breath Last Admin: 06/29/20 18:55 Dose: 2.5 mg Documented by: Atorvastatin Calcium (Atorvastatin 80 Mg Tab) 80 mg PO [facility] Last Admin: 06/29/20 20:03 Dose: 80 mg Documented by: Ceftriaxone Sodium 1 gm/ (Sodium Chloride) 50 mls @ 100 mls/hr IVPB Q24HR [facility] Last Admin: 06/30/20 09:00 Dose: 100 mls/hr Documented by: Metronidazole 500 mg/ IV (Solution) 100 mls @ 100 mls/hr IVPB Q8HR [facility] Last Admin: 06/30/20 09:00 Dose: 100 mls/hr Documented by: Isosorbide Mononitrate (Isosorbide Mononitrate Er 15 Mg Tab) 15 mg PO DAILY [facility] Last Admin: 06/30/20 09:02 Dose: 15 mg Documented by: Melatonin (Melatonin 5 Mg Tablet) 10 mg PO [facility] Last Admin: 06/29/20 20:03 Dose: 10 mg Documented by: Metoprolol Tartrate (Metoprolol Tartrate 50 Mg Tab) 50 mg PO DAILY [facility] Last Admin: 06/30/20 09:01 Dose: 50 mg Documented by: Miscellaneous Information (Potassium Replacement Protocol 1 Each Misc) 1 each MISCELLANE DAILY PRN; Protocol PRN Reason: Per Protocol Nicotine (Nicotine 14mg/24hr Patch) 1 patch TRANSDERM DAILY [facility] Last Admin: 06/30/20 09:02 Dose: 1 patch Documented by: Nitroglycerin (Nitroglycerin Sl Tabs 0.4 Mg Tab) 0.4 mg SUBLINGUAL Q5M PRN PRN Reason: Chest Pain Pantoprazole Sodium (Pantoprazole 40 Mg/10 Ml Vial) 40 mg IVP BID [facility] Last Admin: 06/30/20 09:01 Dose: 40 mg Documented by: Sertraline HCl (Sertraline 100 Mg Tab) 150 mg PO [facility] Last Admin: 06/29/20 20:03 Dose: 150 mg Documented by: Sucralfate (Sucralfate 1 Gm Tab) 1 gm PO AC-BID [facility] Last Admin: 06/30/20 06:40 Dose: 1 gm Documented by: Tamsulosin HCl (Tamsulosin 0.4 Mg Cap.Er.24h) 0.4 mg PO HS [facility] Last Admin: 06/29/20 20:03 Dose: 0.4 mg Documented by: Zolpidem Tartrate (Zolpidem 10 Mg Tab) 10 mg PO HS PRN PRN Reason: Insomnia Last Admin: 06/29/20 20:03 Dose: 10 mg Documented by: Objective - Vital Signs Vital signs: Vital Signs Temp 99.1 F 06/30/20 04:10 Pulse 65 06/30/20 04:10 Resp 18 06/30/20 04:10 BP 131/63 06/30/20 04:10 Pulse Ox 96 06/30/20 04:10 Intake & Output 06/29/20 06/30/20 06/30/20 18:59 06:59 18:59 Intake Total 880 540 Balance 880 540 Weight 58.6 kg 59.2 kg Intake: Intake, IV Titration 150 Amount Lactated Ringers 1,000 ml 150 @ 75 mls/hr IV .[id number] [facility] Rx#:[id number] Oral 730 540 Other: # Voids 1 1 1 # Bowel Movements 2 1 1 - Exam PHYSICAL EXAMINATION: GENERAL: The patient is alert and oriented x3, not in any acute distress. Chronically ill appearing HEENT: Pupils are round and equally reacting to light. EOMI. No scleral icterus. No conjunctival pallor. CARDIOVASCULAR: S1 and S2 present. No murmurs, rubs, or gallops. PULMONARY: Diminished BS in all lung maldnoado ABDOMEN: Soft, nontender, nondistended, normoactive bowel sounds. No palpable organomegaly. MUSCULOSKELETAL: No joint swelling or deformity. EXTREMITIES: No cyanosis, clubbing, or pedal edema. NEUROLOGICAL: Gross neurological examination did not reveal any focal deficits. SKIN: No rashes. - Labs CBC & Chem 7: 06/30/20 07:14 06/30/20 07:14 Labs: Abnormal Lab Results - Last 24 Hours (Table) 06/30/20 06/30/20 Range/Units 07:14 07:14 WBC 2.7 L (3.8-10.6) k/uL RBC 2.34 L (4.30-5.90) m/uL Hgb 7.9 L (13.0-17.5) gm/dL Hct 22.9 L (39.0-53.0) % Plt Count 64 L (150-450) k/uL Lymphocytes # 0.8 L (1.0-4.8) k/uL Potassium 3.1 L (3.5-5.1) mmol/L Chloride 108 H (98-107) mmol/L Glucose 103 H (74-99) mg/dL Calcium 8.1 L (8.4-10.2) mg/dL Assessment and Plan Assessment: ASSESSMENT Non-ST elevation [place] GI bleed Hypokalemia Hypomagnesemia Cholelithiasis Hypertension Hyperlipidemia COPD Anion gap metabolic acidosis Leukocytosis Acute renal failure Hypertension PLAN: Patient's IV heparin was discontinued because of the GI bleed. Cardiology on board they recommended outpatient cardiac catheterization. Holding off aspirin and any antiplatelet therapy for now due to acute GI bleed. Continue with Protonix. Patient is being followed by general surgery for cholecystitis, he has been continued on antibiotics in the form of ceftriaxone and flagyl. SCDs for DVT prophylaxis as the patient has GI bleed and low platelet count. We'll replace potassium and magnesium. Continue with the rest of his current medication regimen and further recommendations to follow depending on the progress of the patient.
[2020-06-30 16:48] LABS: Potassium 3.4 mmol/L (3.5-5.1)
[2020-06-30] MEDS: POTASSIUM CHLORIDE ER 20 MEQ TAB.ER PO SCH ×2 (18:16→20:38)
[2020-06-30] MEDS: MELATONIN 5 MG TABLET PO SCH (20:38)
[2020-06-30] MEDS: ATORVASTATIN 80 MG TAB PO SCH (20:38)
[2020-06-30] MEDS: SERTRALINE 100 MG TAB PO SCH (20:38)
[2020-06-30] MEDS: TAMSULOSIN 0.4 MG CAP.ER.24H PO SCH (20:38)
[2020-06-30] MEDS: ZOLPIDEM 10 MG TAB PO PRN (22:57)
[2020-07-01] MEDS: SUCRALFATE 1 GM TAB PO SCH (06:13)
[2020-07-01 08:37] VITALS: RESP 18
[2020-07-01] MEDS: metroNIDAZOLE-NS PMX 500 MG in SALINE 1 100ML.BAG IVPB SCH (08:37)
[2020-07-01] MEDS: PANTOPRAZOLE 40 MG/10 ML VIAL IVP SCH (08:38)
[2020-07-01] MEDS: NICOTINE 14MG/24HR PATCH TRANSDERM SCH (08:38)
[2020-07-01] MEDS: METOPROLOL TARTRATE 50 MG TAB PO SCH (08:38)
[2020-07-01] MEDS: HYDROcodone/APAP 10-325MG 1 EACH TAB PO SCH ×2 (08:38→11:43)
[2020-07-01] MEDS: ISOSORBIDE MONONITRATE ER 15 MG TAB PO SCH (08:38)
[2020-07-01 10:18] LABS: African American GFR (CKD) >90 (>60 ml/min/1.73 sqM); Anion Gap 6 mmol/L; Blood Urea Nitrogen 12 mg/dL (9-20); Calcium 8.1 mg/dL (8.4-10.2); Carbon Dioxide 26 mmol/L (22-30); Chloride 106 mmol/L (98-107); Glucose 101 mg/dL (74-99); Magnesium 1.9 mg/dL (1.6-2.3); Non-African American GFR(CKD) 85 (>60 ml/min/1.73 sqM); Sodium 138 mmol/L (137-145)
[2020-07-01 10:45] LABS: Basophils % (A) 0 %; Eosinophils % (A) 1 %; HCT 24.5 % (39.0-53.0); HGB 8.6 gm/dL (13.0-17.5); Lymphocytes # (A) 0.7 k/uL (1.0-4.8); Lymphocytes % (A) 18 %; MCH 34.3 pg (25.0-35.0); MCHC 35.2 g/dL (31.0-37.0); MCV 97.6 fL (80.0-100.0); Mean Platelet Volume 11.3; Monocytes # (A) 0.5 k/uL (0-1.0); Monocytes % (A) 13 %; Neutrophils # (A) 2.5 k/uL (1.3-7.7); Neutrophils % (A) 65 %; RBC 2.51 m/uL (4.30-5.90); RDW 14.3 % (11.5-15.5); WBC 3.8 k/uL (3.8-10.6)
--- NOTE | 2020-07-01 10:45 | P.PN ---
<MaiOpal - Last Filed: 07/01/20 10:37> Subjective Progress Note Date: 07/01/20 CHIEF COMPLAINT: Upper GI bleed, chronic cholecystitis HISTORY OF PRESENT ILLNESS: Surgical service is following in regards to patient 's upper GI bleed and chronic cholecystitis. Patient denies any epigastric or right upper quadrant pain this morning. He is complaining of lower abdominal discomfort with loose stools. He reports having 3 loose stools already this morning. The last bowel movement was all brown. He denies any nausea or vomiting. He does not like the hospital food. He is also reporting shortness of breath. Physical therapy is recommending subacute rehab after discharge. Afebrile. Currently on room air. CBC pending creatinine 0.89 potassium is 4.0 magnesium 1.9 PHYSICAL EXAM: VITAL SIGNS: Reviewed. GENERAL: Well-developed in no acute distress. HEENT: No sclera icterus. Extraocular movements grossly intact. Moist buccal mucosa. Head is atraumatic, normocephalic. ABDOMEN: Soft. Nondistended. Tenderness with palpation of the lower abdomen NEUROLOGIC: Alert and oriented. Cranial nerves II through XII grossly intact. ASSESSMENT: 1. Chronic cholecystitis 2. Acute Upper GI bleed status post EGD with cauterization of duodenal AVM 3. Anemia 4. Hypokalemia improved 5. Hypomagnesemia improved PLAN: -Continue regular diet -Continue antibiotics -Recommend outpatient antibiotics -Continue Protonix and Carafate -Recommend outpatient follow-up with Dr. Rendon Physician Glue Specialty Supervisor note has been reviewed by physician. Signing provider agrees with the documented findings, assessment, and plan of care. Objective - Vital Signs Vital signs: Vital Signs Temp 98.4 F 07/01/20 08:00 Pulse 84 07/01/20 08:00 Resp 18 07/01/20 08:00 BP 178/85 07/01/20 08:00 Pulse Ox 94 L 07/01/20 08:00 Intake & Output 06/30/20 07/01/20 07/01/20 18:59 06:59 18:59 Intake Total 780 540 240 Output Total 300 500 Balance 480 540 -260 Weight 59 kg Intake: Oral 780 540 240 Output: Urine 300 Stool 500 Other: # Voids 1 1 # Bowel Movements 1 1 - Labs CBC & Chem 7: 06/30/20 07:14 07/01/20 09:11 Labs: Abnormal Lab Results - Last 24 Hours (Table) 06/30/20 07/01/20 Range/Units 16:12 09:11 Potassium 3.4 L (3.5-5.1) mmol/L Glucose 101 H (74-99) mg/dL Calcium 8.1 L (8.4-10.2) mg/dL <SereneaníbalEd - Last Filed: 07/01/20 18:10> Subjective As above. Some lower abdominal pain today. Denies epigastric or right upper quadrant pain. Stools are nonbloody and non-melanotic. Continue cardiac workup. Follow-up as outpatient. Objective - Vital Signs Vital signs: Vital Signs Temp 98.1 F 07/01/20 11:48 Pulse 67 07/01/20 11:48 Resp 18 07/01/20 14:00 BP 134/70 07/01/20 11:48 Pulse Ox 96 07/01/20 11:48 Intake & Output 06/30/20 07/01/20 07/01/20 18:59 06:59 18:59 Intake Total 780 540 240 Output Total 300 1000 Balance 480 540 -760 Weight 59 kg Intake: Oral 780 540 240 Output: Urine 300 Stool 1000 Other: # Voids 1 1 # Bowel Movements 1 1 - Labs CBC & Chem 7: 07/01/20 09:11 07/01/20 09:11 Labs: Abnormal Lab Results - Last 24 Hours (Table) 07/01/20 07/01/20 Range/Units 09:11 09:11 RBC 2.51 L (4.30-5.90) m/uL Hgb 8.6 L (13.0-17.5) gm/dL Hct 24.5 L (39.0-53.0) % Plt Count 84 L (150-450) k/uL Lymphocytes # 0.7 L (1.0-4.8) k/uL Glucose 101 H (74-99) mg/dL Calcium 8.1 L (8.4-10.2) mg/dL Assessment and Plan (1) Chronic cholecystitis Status: Acute Code(s): K81.1 - CHRONIC CHOLECYSTITIS SNOMED Code(s): 27338530
[2020-07-01 10:47] LABS: Platelet Count 84 k/uL (150-450)
[2020-07-01 11:48] VITALS: BP 134/70; PULSE 67; TEMP 98.1
--- NOTE | 2020-07-01 17:12 | P.DS ---
Providers Date of admission: 06/25/20 23:50 Expected date of discharge: 07/01/20 Attending physician: Amee Cordero Consults: 06/25/20 22:50 Consult Physician Urgent Consulting Provider: Donal Page Consult Reason/Comments: elevated troponin/BNP, n/v/dyspnea Do you want consulting provider notified?: Already Contacted 06/25/20 22:55 Consult Physician Routine Consulting Provider: Ed Rendon Consult Reason/Comments: GI bleed, RUQ Pain, gallbladder dysfunction Do you want consulting provider notified?: Yes, Notify in am Primary care physician: [facility] Course: HPI - Mr. Cooley is a 75-year-old male came in with compensative nausea vomiting abdominal pain and diarrhea going on for about 4-5 days patient is a CT of the abdomen which showed cholelithiasis. Patient the is also found to have elevated troponins no symptoms and chest pain. Patient was also company of shortness of breath denied any orthopnea or paroxysmal nocturnal dyspnea. Patient is found to have elevated troponins first one being 1.6 second one 1.3 and third one being 1.0. Patient was started on IV heparin after that patient started having dark stools IV heparin was discontinued patient was started on Protonix patient does use of nonsteroidal anti-emetics of the night. Patient does have history of COPD does have emphysema on the x-ray doesn't use any oxygen presently on 4 L oxygen not wheezing can use to smoke about one pack of cigarettes per day. Patient was started on ceftriaxone and metronidazole by general surgery which I believe is for gallbladder pathology. Patient also had an ultrasound of the right upper quadrant which showed prominent common bile duct mild, bladder dysfunction with dilation of intrahepatic biliary duct. Hospital course - as the patient had elevated troponins, patient was started on IV heparin drip. After initiation of IV heparin patient started to have dark colored stool and his hemoglobin dropped. So his IV heparin was discontinued and patient had an EGD showing duodenitis with small AVM, gastritis, hiatal hernia. He had cauterization of the duodenal AVM. He was started on a Protonix and sucralfate. Patient's hemoglobin remained stable he continued to have dark colored stool, that eventually turned brown later. Patient did not receive any blood transfusions. Cardiology followed the patient and suggested outpatient follow-up for possible cardiac catheterization. Patient was also given ceftriaxone and Flagyl for cholecystitis and Gen. surgery followed the patient. Patient has been cleared by cardiology and general surgery to be discharged. Patient's hemoglobin has been stable 8.6 at the time of discharge. PHYSICAL EXAM Vital Signs 07/01/20 07/01/20 11:48 14:00 Temperature 98.1 F Pulse Rate [ 67 Pulse Oximetery ] Respiratory 18 18 Rate Blood Pressure 134/70 [Right Arm] O2 Sat by Pulse 96 Oximetry GENERAL: The patient is alert and oriented x3, not in any acute distress. Chronically ill appearing HEENT: Pupils are round and equally reacting to light. EOMI. No scleral icterus. No conjunctival pallor. CARDIOVASCULAR: S1 and S2 present. No murmurs, rubs, or gallops. PULMONARY: Diminished BS in all lung maldonado ABDOMEN: Soft, nontender, nondistended, normoactive bowel sounds. No palpable organomegaly. MUSCULOSKELETAL: No joint swelling or deformity. EXTREMITIES: No cyanosis, clubbing, or pedal edema. NEUROLOGICAL: Gross neurological examination did not reveal any focal deficits. SKIN: No rashes. DISCHARGE DIAGNOSIS Non-ST elevation MT Acute blood loss anemia due to GI bleed Hypokalemia Hypomagnesemia Cholelithiasis Hypertension Hyperlipidemia COPD Anion gap metabolic acidosis Leukocytosis Acute renal failure Hypertension Moderate protein calorie malnutrition Follow-up : Patient is advised to continue taking Protonix and sucralfate. He has been started on Imdur, metoprolol by cardiology due to an STEMI, patient is advised to be compliant with his medications. He is being discharged home to complete an antibiotic course of levofloxacin for 7 more days. He is advised to follow up with surgery Dr. Rendon, cardiology Dr. Greenberg and his primary care physician in 2-3 days. Patient was advised to come to the ER if he notices any blood in his stool or starts to have chest pain with difficulty in breathing. He was also advised to stop using NSAIDs. More than 35 minutes spent with the discharge of the patient. Patient Condition at Discharge: Fair Plan - Discharge Summary Discharge Rx Participant: Yes New Discharge Prescriptions: New Levofloxacin [Levaquin] 500 mg PO DAILY 7 Days #7 tab Isosorbide Mononitrate ER [Imdur] 15 mg PO DAILY #30 dose Metoprolol Tartrate [Lopressor] 50 mg PO DAILY #30 tab Nitroglycerin Sl Tabs [Nitrostat] 0.4 mg SUBLINGUAL Q5M PRN #20 tab PRN Reason: Chest Pain Pantoprazole Sodium [Protonix] 40 mg PO BID #60 tablet. Sucralfate [Carafate] 1 gm PO BID #60 tablet Continue Sertraline HCl [Zoloft] 150 mg PO HS Atorvastatin [Lipitor] 80 mg PO HS Zolpidem Tartrate 10 mg PO HS Melatonin 50 mg PO HS HYDROcodone/APAP 10-325MG [[place] 10-325] 1 tab PO QID Albuterol Inhaler [Ventolin Hfa Inhaler] 2 puff INHALATION RT-QID PRN PRN Reason: Shortness Of Breath Tamsulosin [Flomax] 0.4 mg PO HS Discontinued Naproxen Sod/Diphenhydramine [Aleve Pm Caplet] 1 tab PO HS amLODIPine [Norvasc] 10 mg PO HS Discharge Medication List Sertraline HCl [Zoloft] 150 mg PO HS 12/27/13 [History] Atorvastatin [Lipitor] 80 mg PO HS 08/07/15 [History] Zolpidem Tartrate 10 mg PO HS 09/25/15 [History] HYDROcodone/APAP 10-325MG [[place] 10-325] 1 tab PO QID 05/29/18 [History] Melatonin 50 mg PO HS 05/29/18 [History] Albuterol Inhaler [Ventolin Hfa Inhaler] 2 puff INHALATION RT-QID PRN 06/25/20 [History] Tamsulosin [Flomax] 0.4 mg PO HS 06/25/20 [History] Isosorbide Mononitrate ER [Imdur] 15 mg PO DAILY #30 dose 07/01/20 [Rx] Levofloxacin [Levaquin] 500 mg PO DAILY 7 Days #7 tab 07/01/20 [Rx] Metoprolol Tartrate [Lopressor] 50 mg PO DAILY #30 tab 07/01/20 [Rx] Nitroglycerin Sl Tabs [Nitrostat] 0.4 mg SUBLINGUAL Q5M PRN #20 tab 07/01/20 [Rx] Pantoprazole Sodium [Protonix] 40 mg PO BID #60 tablet. 07/01/20 [Rx] Sucralfate [Carafate] 1 gm PO BID #60 tablet 03/24/21 [Rx] Follow up Appointment(s)/Referral(s): Ed Rendon MD [Medical Doctor] - 07/08/20 3:00 pm Cayla Gerenberg MD [STAFF PHYSICIAN] - 1 Week (The office will call you with an appointment) [facility], [NON-STAFF] - Jay Jay Hagan MD [Primary Care Provider] - 1-2 days (Head Teacher unable to answer the phone, please call to make an appointment.) Patient Instructions/Handouts: Chest Pain (DC), Gastrointestinal Bleeding (DC), Upper Endoscopy (DC) Discharge Disposition: HOME SELF-CARE
== END 2020-07-01 15:49 | disposition home or self-care (01) | DRG 281 ==
LOC: EC 16:52 → 3SCARD 23:50
PROVIDERS: ADMIT Hospitalist; ATTEND Hospitalist
PROC: 0W3P8ZZ Control Bleeding in Gastrointestinal Tract, Via Natural or Artificial Opening Endoscopic (ICD-10-PCS; principal; 2020-06-26 09:10)
DX: Q27.33 Arteriovenous malformation of digestive system vessel (principal); I21.4 Non-ST elevation (NSTEMI) myocardial infarction; K80.10 Calculus of gallbladder with chronic cholecystitis without obstruction; E87.2 Acidosis; N17.9 Acute kidney failure, unspecified; D62 Acute posthemorrhagic anemia; E44.0 Moderate protein-calorie malnutrition; Z68.1 Body mass index [BMI] 19.9 or less, adult; Z20.822 Contact with and (suspected) exposure to COVID-19; E86.0 Dehydration; R19.7 Diarrhea, unspecified; E78.5 Hyperlipidemia, unspecified; M19.90 Unspecified osteoarthritis, unspecified site; Z87.820 Personal history of traumatic brain injury; F43.10 Post-traumatic stress disorder, unspecified; F17.210 Nicotine dependence, cigarettes, uncomplicated; I10 Essential (primary) hypertension; N40.0 Benign prostatic hyperplasia without lower urinary tract symptoms; E87.6 Hypokalemia; E83.42 Hypomagnesemia; K29.80 Duodenitis without bleeding; K29.70 Gastritis, unspecified, without bleeding; K22.2 Esophageal obstruction; E87.8 Other disorders of electrolyte and fluid balance, not elsewhere classified; I25.2 Old myocardial infarction; I35.0 Nonrheumatic aortic (valve) stenosis; J43.9 Emphysema, unspecified; K44.9 Diaphragmatic hernia without obstruction or gangrene; K82.8 Other specified diseases of gallbladder
CPT/HCPCS: 36415; 43255; 71046; 74177; 76705; 78582; 80048; 80053; 80061; 82150; 83605; 83690; 83735; 83880; 84132; 84484; 85025; 85027; 85610; 85730; 87635; 93005; 93306; 94640; 94760; 96361; 96365; 96376; 99291

== ENCOUNTER 2020-07-24 16:31 | Inpatient (IN) | payer MEDICARE ==
[2020-07-24] MEDS ORDERED: DIPH,PERTUS(ACELL)TETVAC-LF 0.5 ML VIAL IM ONE (16:40)
[2020-07-24] MEDS ORDERED: HYDROmorphone 1 MG/ML 1 ML SYRINGE IVP STA ×2 (16:47→18:06)
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
[2020-07-24 17:17] LABS: Basophils % (A) 1 %; Eosinophils # (A) 0.1 k/uL (0-0.7); Eosinophils % (A) 1 %; Hypochromasia Slight; Lymphocytes % (A) 21 %; MCH 32.8 pg (25.0-35.0); MCHC 31.7 g/dL (31.0-37.0); MCV 103.5 fL (80.0-100.0); Macrocytosis Moderate; Mean Platelet Volume 9.5; Monocytes # (A) 0.6 k/uL (0-1.0); Monocytes % (A) 12 %; Neutrophils # (A) 2.7 k/uL (1.3-7.7); Neutrophils % (A) 61 %; Platelet Count 144 k/uL (150-450); RBC 2.99 m/uL (4.30-5.90); RDW 15.5 % (11.5-15.5); WBC 4.5 k/uL (3.8-10.6)
[2020-07-24 17:19] LABS: HGB 9.8 gm/dL (13.0-17.5)
[2020-07-24 17:24] LABS: ALT 34 U/L (4-49); AST 43 U/L (17-59); African American GFR (CKD) 83 (>60 ml/min/1.73 sqM); Albumin 4.1 g/dL (3.5-5.0); Alcohol <10 mg/dL; Alkaline Phosphatase 66 U/L (38-126); Anion Gap 11 mmol/L; Blood Urea Nitrogen 24 mg/dL (9-20); Carbon Dioxide 21 mmol/L (22-30); Chloride 106 mmol/L (98-107); Creatine Kinase 56 U/L (55-170); Glucose 109 mg/dL (74-99); Non-African American GFR(CKD) 72 (>60 ml/min/1.73 sqM); Potassium 4.3 mmol/L (3.5-5.1); Sodium 138 mmol/L (137-145); Total Bilirubin 0.4 mg/dL (0.2-1.3); Total Protein 7.5 g/dL (6.3-8.2)
[2020-07-24 17:28] LABS: INR 0.9 (<1.2); Prothrombin Time 10.2 sec (9.0-12.0)
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
[2020-07-24 17:42] LABS: Partial Thromboplastin Time 19.8 sec (22.0-30.0)
[2020-07-24] MEDS ORDERED: GELATIN SPONGE,ABSORB (LARGE) 1 EACH SPONGE TOPICAL STA (18:10)
[2020-07-24] MEDS ORDERED: TRANEXAMIC ACID 2,000 MG in SODIUM CHLORIDE 0.9% 100 ML IRRIGATION ONE (19:45)
[2020-07-24] MEDS ORDERED: THROMBIN (BOVINE) 5,000 UNIT VIAL TOPICAL STA (20:40)
[2020-07-24 21:05] LABS: Glucose,Whole Blood 176 mg/dL (75-99)
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
[2020-07-24] MEDS ORDERED: ACETAMINOPHEN TAB 325 MG TAB PO PRN (21:21)
[2020-07-24] MEDS ORDERED: NALOXONE 0.4 MG/ML 1 ML VIAL IV PRN (21:21)
[2020-07-24] MEDS ORDERED: NITROGLYCERIN SL TABS 0.4 MG TAB SUBLINGUAL PRN (21:25)
[2020-07-24] MEDS ORDERED: ALBUTEROL NEBULIZED 2.5 MG/3 ML INHALATION PRN (21:25)
[2020-07-24] MEDS ORDERED: SODIUM CHLORIDE 0.9% 500 ML 500 ML IV STA (21:30)
[2020-07-24] MEDS: HYDROmorphone 0.5 MG/0.5 ML SYRINGE IVP PRN (22:00)
[2020-07-24] MEDS: SODIUM CHLORIDE 0.9% 1,000 ML IV SCH (23:35)
[2020-07-24 23:39] LABS: Basophils % (A) 0 %; Eosinophils % (A) 0 %; HCT 27.3 % (39.0-53.0); HGB 8.5 gm/dL (13.0-17.5); Hypochromasia Slight; Lymphocytes # (A) 0.5 k/uL (1.0-4.8); Lymphocytes % (A) 2 %; MCH 32.4 pg (25.0-35.0); MCHC 31.3 g/dL (31.0-37.0); MCV 103.4 fL (80.0-100.0); Macrocytosis Moderate; Mean Platelet Volume 10.2; Monocytes # (A) 1.9 k/uL (0-1.0); Monocytes % (A) 9 %; Neutrophils # (A) 17.5 k/uL (1.3-7.7); Neutrophils % (A) 87 %; Platelet Count 158 k/uL (150-450); RBC 2.64 m/uL (4.30-5.90); RDW 15.6 % (11.5-15.5); WBC 20.2 k/uL (3.8-10.6)
[2020-07-25] MEDS: CEPHALEXIN 500 MG CAP PO SCH ×5 (00:21→23:19)
[2020-07-25] MEDS: HYDROmorphone 0.5 MG/0.5 ML SYRINGE IVP PRN ×5 (00:39→23:19)
[2020-07-25] MEDS: HYDROcodone/APAP 10-325MG 1 EACH TAB PO SCH ×5 (03:35→20:57)
[2020-07-25] MEDS ORDERED: ISOSORBIDE MONONITRATE ER 15 MG TAB PO SCH (09:00)
[2020-07-25] MEDS: PANTOPRAZOLE 40 MG TABLET PO SCH ×2 (09:01→20:57)
[2020-07-25] MEDS: METOPROLOL TARTRATE 50 MG TAB PO SCH ×2 (09:01→20:57)
[2020-07-25] MEDS: SUCRALFATE 1 GM TAB PO SCH ×2 (09:01→20:57)
[2020-07-25] MEDS: NICOTINE 14MG/24HR PATCH TRANSDERM SCH (09:02)
[2020-07-25] MEDS: lisinopriL 20 MG TAB PO SCH (09:02)
[2020-07-25] MEDS: SODIUM CHLORIDE 0.9% 1,000 ML IV SCH ×2 (09:03→18:27)
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
[2020-07-25 12:37] LABS: Basophils % (A) 0 %; Eosinophils % (A) 0 %; HCT 22.4 % (39.0-53.0); HGB 7.5 gm/dL (13.0-17.5); Hypochromasia Slight; Lymphocytes # (A) 0.7 k/uL (1.0-4.8); Lymphocytes % (A) 8 %; MCH 33.9 pg (25.0-35.0); MCHC 33.4 g/dL (31.0-37.0); MCV 101.5 fL (80.0-100.0); Macrocytosis Slight; Mean Platelet Volume 10.1; Monocytes # (A) 1.2 k/uL (0-1.0); Monocytes % (A) 12 %; Neutrophils # (A) 7.4 k/uL (1.3-7.7); Neutrophils % (A) 78 %; Platelet Count 115 k/uL (150-450); RBC 2.21 m/uL (4.30-5.90); RDW 15.1 % (11.5-15.5); WBC 9.5 k/uL (3.8-10.6)
[2020-07-25 12:42] LABS: Calcium 8.2 mg/dL (8.4-10.2); Potassium 4.9 mmol/L (3.5-5.1)
[2020-07-25 13:30] VITALS: BMI 17.4
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
[2020-07-25] MEDS: ASPIRIN 81 MG PO SCH (14:22)
[2020-07-25] MEDS: TICAGRELOR 90 MG TAB PO SCH ×2 (14:22→21:00)
[2020-07-25] MEDS: MELATONIN 5 MG TABLET PO SCH (20:57)
[2020-07-25] MEDS: ATORVASTATIN 80 MG TAB PO SCH (20:57)
[2020-07-25] MEDS: TAMSULOSIN 0.4 MG CAP.ER.24H PO SCH (20:57)
[2020-07-25] MEDS: ZOLPIDEM 5 MG TAB PO SCH (20:57)
[2020-07-25] MEDS: SERTRALINE 100 MG TAB PO SCH (20:57)
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
[2020-07-26] MEDS ORDERED: DILTIAZEM 5 MG/ML 5 ML VIAL IVP STA (00:09)
[2020-07-26] MEDS ORDERED: DILTIAZEM DRIP BOLUS FROM BAG 1 MG SOLN IV STA (00:18)
[2020-07-26] MEDS ORDERED: DILTIAZEM 125 MG in SODIUM CHLORIDE 0.9% 100 ML IV SCH (00:30)
[2020-07-26] MEDS: SODIUM CHLORIDE 0.9% 1,000 ML IV SCH ×2 (04:31→15:15)
[2020-07-26] MEDS: CEPHALEXIN 500 MG CAP PO SCH ×3 (05:18→17:09)
[2020-07-26] MEDS: HYDROmorphone 0.5 MG/0.5 ML SYRINGE IVP PRN ×5 (05:18→20:18)
[2020-07-26 08:46] LABS: African American GFR (CKD) >90 (>60 ml/min/1.73 sqM); Anion Gap 6 mmol/L; Blood Urea Nitrogen 18 mg/dL (9-20); Calcium 7.9 mg/dL (8.4-10.2); Carbon Dioxide 21 mmol/L (22-30); Chloride 112 mmol/L (98-107); Glucose 137 mg/dL (74-99); Non-African American GFR(CKD) 83 (>60 ml/min/1.73 sqM); Sodium 139 mmol/L (137-145)
[2020-07-26 09:01] LABS: Basophils % (A) 0 %; Eosinophils % (A) 1 %; HCT 20.1 % (39.0-53.0); Hypochromasia Slight; Lymphocytes # (A) 0.4 k/uL (1.0-4.8); Lymphocytes % (A) 8 %; MCH 33.1 pg (25.0-35.0); MCHC 32.2 g/dL (31.0-37.0); MCV 102.9 fL (80.0-100.0); Macrocytosis Slight; Mean Platelet Volume 10.4; Monocytes # (A) 0.5 k/uL (0-1.0); Monocytes % (A) 10 %; Neutrophils # (A) 3.8 k/uL (1.3-7.7); Neutrophils % (A) 80 %; RBC 1.96 m/uL (4.30-5.90); RDW 15.6 % (11.5-15.5); WBC 4.7 k/uL (3.8-10.6)
[2020-07-26] MEDS: METOPROLOL TARTRATE 50 MG TAB PO SCH ×2 (09:01→20:21)
[2020-07-26] MEDS: SUCRALFATE 1 GM TAB PO SCH ×2 (09:01→20:22)
[2020-07-26] MEDS: PANTOPRAZOLE 40 MG TABLET PO SCH ×2 (09:01→20:22)
[2020-07-26] MEDS: ASPIRIN 81 MG PO SCH (09:01)
[2020-07-26] MEDS: lisinopriL 20 MG TAB PO SCH (09:02)
[2020-07-26] MEDS: HYDROcodone/APAP 10-325MG 1 EACH TAB PO SCH ×4 (09:02→21:52)
[2020-07-26] MEDS: TICAGRELOR 90 MG TAB PO SCH ×2 (09:02→20:22)
[2020-07-26] MEDS: NICOTINE 14MG/24HR PATCH TRANSDERM SCH (09:06)
[2020-07-26 09:18] LABS: HGB 6.5 gm/dL (13.0-17.5)
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
[2020-07-26 12:54] LABS: Platelet Count 86 k/uL (150-450)
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
[2020-07-26] MEDS: MELATONIN 5 MG TABLET PO SCH (20:22)
[2020-07-26] MEDS: ZOLPIDEM 5 MG TAB PO SCH (20:22)
[2020-07-26] MEDS: ATORVASTATIN 80 MG TAB PO SCH (20:22)
[2020-07-26] MEDS: TAMSULOSIN 0.4 MG CAP.ER.24H PO SCH (20:22)
[2020-07-26] MEDS: SERTRALINE 100 MG TAB PO SCH (20:22)
[2020-07-27] MEDS: CEPHALEXIN 500 MG CAP PO SCH ×5 (01:39→23:49)
[2020-07-27] MEDS: SODIUM CHLORIDE 0.9% 1,000 ML IV SCH ×3 (01:40→17:37)
[2020-07-27] MEDS: ASPIRIN 81 MG PO SCH (09:11)
[2020-07-27] MEDS: METOPROLOL TARTRATE 50 MG TAB PO SCH ×2 (09:11→21:05)
[2020-07-27] MEDS: TICAGRELOR 90 MG TAB PO SCH ×2 (09:11→21:05)
[2020-07-27] MEDS: NICOTINE 14MG/24HR PATCH TRANSDERM SCH (09:11)
[2020-07-27] MEDS: SUCRALFATE 1 GM TAB PO SCH ×2 (09:11→21:05)
[2020-07-27] MEDS: lisinopriL 20 MG TAB PO SCH (09:11)
[2020-07-27] MEDS: HYDROcodone/APAP 10-325MG 1 EACH TAB PO SCH ×4 (09:11→22:19)
[2020-07-27] MEDS: PANTOPRAZOLE 40 MG TABLET PO SCH ×2 (09:11→21:04)
[2020-07-27] MEDS ORDERED: lisinopriL 20 MG TAB PO STA (09:23)
[2020-07-27 09:41] LABS: Anisocytosis Slight; Basophils % (A) 0 %; Eosinophils # (A) 0.1 k/uL (0-0.7); Eosinophils % (A) 1 %; HCT 24.9 % (39.0-53.0); Hypochromasia Slight; Lymphocytes # (A) 0.5 k/uL (1.0-4.8); Lymphocytes % (A) 9 %; MCH 32.2 pg (25.0-35.0); MCHC 32.5 g/dL (31.0-37.0); MCV 99.3 fL (80.0-100.0); Macrocytosis Slight; Mean Platelet Volume 10.5; Monocytes # (A) 0.5 k/uL (0-1.0); Monocytes % (A) 9 %; Neutrophils % (A) 78 %; Poikilocytosis Slight; RBC 2.51 m/uL (4.30-5.90); RDW 16.3 % (11.5-15.5); WBC 5.1 k/uL (3.8-10.6)
[2020-07-27 09:42] LABS: African American GFR (CKD) >90 (>60 ml/min/1.73 sqM); Anion Gap 4 mmol/L; Blood Urea Nitrogen 14 mg/dL (9-20); Carbon Dioxide 22 mmol/L (22-30); Chloride 109 mmol/L (98-107); Glucose 114 mg/dL (74-99); Non-African American GFR(CKD) 87 (>60 ml/min/1.73 sqM); Potassium 3.8 mmol/L (3.5-5.1); Sodium 135 mmol/L (137-145)
[2020-07-27 09:45] LABS: HGB 8.1 gm/dL (13.0-17.5); Platelet Count 83 k/uL (150-450)
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
[2020-07-27] MEDS: HYDROmorphone 0.5 MG/0.5 ML SYRINGE IVP PRN ×4 (13:14→21:37)
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
[2020-07-27] MEDS: SERTRALINE 100 MG TAB PO SCH (21:04)
[2020-07-27] MEDS: MELATONIN 5 MG TABLET PO SCH (21:04)
[2020-07-27] MEDS: ZOLPIDEM 5 MG TAB PO SCH (21:04)
[2020-07-27] MEDS: ATORVASTATIN 80 MG TAB PO SCH (21:05)
[2020-07-27] MEDS: TAMSULOSIN 0.4 MG CAP.ER.24H PO SCH (21:05)
[2020-07-28] MEDS: SODIUM CHLORIDE 0.9% 1,000 ML IV SCH (06:34)
[2020-07-28] MEDS: CEPHALEXIN 500 MG CAP PO SCH ×2 (06:34→12:19)
[2020-07-28] MEDS ORDERED: lisinopriL 20 MG TAB PO SCH (09:00)
[2020-07-28] MEDS: HYDROcodone/APAP 10-325MG 1 EACH TAB PO SCH ×2 (09:01→12:19)
[2020-07-28] MEDS: ASPIRIN 81 MG PO SCH (09:02)
[2020-07-28] MEDS: NICOTINE 14MG/24HR PATCH TRANSDERM SCH (09:02)
[2020-07-28] MEDS: METOPROLOL TARTRATE 50 MG TAB PO SCH (09:03)
[2020-07-28] MEDS: TICAGRELOR 90 MG TAB PO SCH (09:03)
[2020-07-28] MEDS: PANTOPRAZOLE 40 MG TABLET PO SCH (09:03)
[2020-07-28] MEDS: SUCRALFATE 1 GM TAB PO SCH (09:03)
[2020-07-28 11:10] LABS: Anisocytosis Slight; Basophils % (A) 0 %; Eosinophils # (A) 0.1 k/uL (0-0.7); Eosinophils % (A) 2 %; HCT 24.4 % (39.0-53.0); HGB 7.8 gm/dL (13.0-17.5); Lymphocytes # (A) 0.4 k/uL (1.0-4.8); Lymphocytes % (A) 11 %; MCH 31.5 pg (25.0-35.0); MCHC 31.8 g/dL (31.0-37.0); MCV 98.9 fL (80.0-100.0); Macrocytosis Slight; Mean Platelet Volume 10.6; Monocytes # (A) 0.3 k/uL (0-1.0); Monocytes % (A) 10 %; Neutrophils # (A) 2.5 k/uL (1.3-7.7); Neutrophils % (A) 75 %; Platelet Count 82 k/uL (150-450); RBC 2.47 m/uL (4.30-5.90); RDW 16.1 % (11.5-15.5); WBC 3.4 k/uL (3.8-10.6)
[2020-07-28 12:19] VITALS: BP 178/89; PULSE 69; RESP 18; TEMP 98.9
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
== END 2020-07-28 16:19 | DRG 812 ==
LOC: EC 16:31 → 3SCARD 21:21 → OBSVTOIN 07-25 15:58
PROVIDERS: ADMIT Internal Medicine; ATTEND Internal Medicine
PROC: 3E0234Z Introduction of Serum, Toxoid and Vaccine into Muscle, Percutaneous Approach (ICD-10-PCS; principal; 2020-07-24)
PROC: 30233N1 Transfusion of Nonautologous Red Blood Cells into Peripheral Vein, Percutaneous Approach (ICD-10-PCS; 2020-07-26)
DX: D62 Acute posthemorrhagic anemia (principal); S62.327B Displaced fracture of shaft of fifth metacarpal bone, left hand, initial encounter for open fracture; E44.0 Moderate protein-calorie malnutrition; Z68.1 Body mass index [BMI] 19.9 or less, adult; I13.0 Hypertensive heart and chronic kidney disease with heart failure and stage 1 through stage 4 chronic kidney disease, or unspecified chronic kidney disease; S81.832A Puncture wound without foreign body, left lower leg, initial encounter; I50.9 Heart failure, unspecified; I48.0 Paroxysmal atrial fibrillation; J44.9 Chronic obstructive pulmonary disease, unspecified; Z20.822 Contact with and (suspected) exposure to COVID-19; Z23 Encounter for immunization; I25.10 Atherosclerotic heart disease of native coronary artery without angina pectoris; E78.5 Hyperlipidemia, unspecified; N18.9 Chronic kidney disease, unspecified; N40.0 Benign prostatic hyperplasia without lower urinary tract symptoms; B19.20 Unspecified viral hepatitis C without hepatic coma; I25.2 Old myocardial infarction; M19.90 Unspecified osteoarthritis, unspecified site; K80.20 Calculus of gallbladder without cholecystitis without obstruction; H93.13 Tinnitus, bilateral; K31.819 Angiodysplasia of stomach and duodenum without bleeding; I49.1 Atrial premature depolarization; K76.9 Liver disease, unspecified; I83.91 Asymptomatic varicose veins of right lower extremity; F43.10 Post-traumatic stress disorder, unspecified; F17.210 Nicotine dependence, cigarettes, uncomplicated; Z71.6 Tobacco abuse counseling; H91.90 Unspecified hearing loss, unspecified ear; Z79.82 Long term (current) use of aspirin; Z79.891 Long term (current) use of opiate analgesic; Z79.02 Long term (current) use of antithrombotics/antiplatelets; Z79.899 Other long term (current) drug therapy; Z87.828 Personal history of other (healed) physical injury and trauma; Z87.19 Personal history of other diseases of the digestive system; Z87.01 Personal history of pneumonia (recurrent); Z87.81 Personal history of (healed) traumatic fracture; Z86.13 Personal history of malaria; Z96.651 Presence of right artificial knee joint; Z90.89 Acquired absence of other organs; Z98.42 Cataract extraction status, left eye; Z98.41 Cataract extraction status, right eye; Z96.1 Presence of intraocular lens; Z86.79 Personal history of other diseases of the circulatory system; Z98.1 Arthrodesis status; Z87.820 Personal history of traumatic brain injury; Z98.61 Coronary angioplasty status; Z98.890 Other specified postprocedural states; Z71.3 Dietary counseling and surveillance; Z88.0 Allergy status to penicillin; W32.0XXA Accidental handgun discharge, initial encounter; Y92.039 Unspecified place in apartment as the place of occurrence of the external cause; Z82.49 Family history of ischemic heart disease and other diseases of the circulatory system; Z81.1 Family history of alcohol abuse and dependence
CPT/HCPCS: 36415; 80048; 80053; 80320; 82550; 82607; 82747; 84484; 85025; 85610; 85730; 86850; 86900; 86901; 86920; 87635; 93005; 94640; 96365; 96375; 96376; 99284